=== PATIENT | male | born 1935 | race Caucasian/White ===

== ENCOUNTER → 2019-01-04 | Outpatient (CLI) | payer MEDICARE, OTHER ==
[~2019-01-04] MED LIST: AMLO10TA4 PO; BNZ40T PO; MTF500T PO; NABU750T PO; OMEP20CA6 PO; PRAV80TA PO; PROM25SU10 PR
--- NOTE | 2019-01-04 14:05 | Diagnostic Imaging Report ---
PROCEDURE: US carotid duplex, bilateral. TECHNIQUE: Multiple real-time grayscale images were obtained over the carotid arteries in various projections, bilaterally. Additional spectral analysis and color Doppler duplex images were also obtained. INDICATION: Carotid bruit FINDINGS: There is mild/moderate bilateral calcified carotid plaque. There are no focally elevated velocities within either common carotid artery, internal carotid artery. IC/CC ratio on the right is 1.79 and the left 1.0. There is antegrade flow in the right vertebral artery. Left vertebral artery is not visualized. Parameters based on the consensus panel Kent-Scale and Doppler ultrasound criteria published July 2003, Radiology, Volume 229. DOPPLER (peak systolic velocity M/S Right Left CCA 0.45 0.64 ICA Proximal 0.65 0.64 ICA Mid 0.80 0.62 ICA Distal 0.50 0.64 RATIO 1.79 1.00 ECA 0.89 1.0 VERT 0.55 NOT SEEN AT THIS TIME IMPRESSION: Mild/moderate bilateral carotid plaque. Spectral analysis shows no evidence of a hemodynamically significant stenosis within either internal carotid artery. The left vertebral artery was not visualized on this exam. Its uncertain if this is due to occlusion or hypoplasia. Dictated by: Dictated on workstation # [id number]
== END ==
LOC: RAD 12:24
PROVIDERS: ATTEND Internal Medicine
DX: I65.23 Occlusion and stenosis of bilateral carotid arteries (principal)
CPT/HCPCS: 93880

== ENCOUNTER 2021-02-15 22:32 | Inpatient (IN) | payer MEDICARE, OTHER ==
[~2021-02-15] VITALS: Ht 178 cm; Wt 84.6 kg
[2021-02-15] MEDS ORDERED: ACETAMINOPHEN 500 MG TAB (TYLENOL) ONE (22:45)
[2021-02-15 22:53] LABS: BASOPHILS % (AUTO) 0 % (0-10); EOSINOPHILS % (AUTO) 0 % (0-10); HEMATOCRIT 30 % (40-54); HEMOGLOBIN 9.6 g/dL (13.3-17.7); LYMPHOCYTES # (AUTO) 0.9 10^3/uL (1.0-4.0); LYMPHOCYTES % (AUTO) 8 % (12-44); MEAN CORPUSCULAR HEMOGLOBIN 26 pg (25-34); MEAN CORPUSCULAR HGB CONC 32 g/dL (32-36); MEAN CORPUSCULAR VOLUME 83 fL (80-99); MEAN PLATELET VOLUME 10.3 fL (9.0-12.2); MONOCYTES # (AUTO) 1.1 10^3/uL (0.0-1.0); MONOCYTES % (AUTO) 9 % (0-12); NEUTROPHILS # (AUTO) 9.4 10^3/uL (1.8-7.8); NEUTROPHILS % (AUTO) 82 % (42-75); PLATELET COUNT 251 10^3/uL (130-400); WHITE BLOOD COUNT 11.4 10^3/uL (4.3-11.0)
[2021-02-15] MEDS ORDERED: ACETAMINOPHEN 500 MG TAB (TYLENOL) PO ONE (23:00)
[2021-02-15 23:07] LABS: ALBUMIN 3.4 GM/DL (3.2-4.5)
[2021-02-15 23:08] LABS: CHLORIDE 100 MMOL/L (98-107); POTASSIUM 3.8 MMOL/L (3.6-5.0); SODIUM 135 MMOL/L (135-145)
[2021-02-15 23:09] LABS: CALCIUM 9.2 MG/DL (8.5-10.1)
[2021-02-15 23:10] LABS: GLUCOSE 130 MG/DL (70-105); TOTAL PROTEIN 7.3 GM/DL (6.4-8.2)
[2021-02-15 23:11] LABS: CARBON DIOXIDE 20 MMOL/L (21-32)
[2021-02-15 23:13] LABS: ALKALINE PHOSPHATASE 52 U/L (40-136)
[2021-02-15 23:14] LABS: CREATININE SERUM 1.03 MG/DL (0.60-1.30); GFR ESTIMATED > 60
[2021-02-15 23:15] LABS: BUN/CREATININE RATIO 20
[2021-02-15 23:16] LABS: ALANINE AMINOTRANSFERASE 10 U/L (0-55)
[2021-02-15 23:59] LABS: INR 1.3 (0.8-1.4); PROTHROMBIN TIME PATIENT 16.1 SEC (12.2-14.7)
[2021-02-16 00:41] LABS: BILIRUBIN,URINE NEGATIVE (NEGATIVE); CLARITY,URINE CLEAR; COLOR,URINE YELLOW; GLUCOSE, URINE (UA) NEGATIVE (NEGATIVE); KETONES,URINE NEGATIVE (NEGATIVE); LEUKOCYTE ESTERASE ,URINE NEGATIVE (NEGATIVE); NITRITE,URINE NEGATIVE (NEGATIVE); PH,URINE 5.5 (5-9); PROTEIN,URINE 1+ (NEGATIVE)
[2021-02-16 00:53] LABS: BACTERIA,URINE NEGATIVE /HPF; RBC,URINE RARE /HPF
[2021-02-16] MEDS ORDERED: CEFEPIME INJECTION 1,000 MG in WATER (STERILE) FOR INJECTION 10 ML IV ONE (02:30)
--- NOTE | 2021-02-16 02:40 | ED General ---
General Chief Complaint: Fever-Adult/Adol Stated Complaint: WEAKNESS,FEVER Nursing Triage Note: PRESENTS TO ROOM #9 [facility]IA [facility] GURNEY FROM HOME WITH C/O FEVER AND WEAKNESS. ENROUTE TO FACILITY EMS ACCESSED 20G SL TO R WRIST AND INITIATED NS BOLUS. EMS ADVISE POOR LIVING CONDITIONS WITH NO AIR CONDITIONER IN PT HOME. PT ALERT TO SELF AND SITUATION. Nursing Sepsis Screen: Possible Severe Sepsis Risk Source of Information: Patient, Family, Old Records Exam Limitations: Other (Dementia) History of Present Illness Date Seen by Provider: Feb 15, 2021 Time Seen by Provider: 22:34 Initial Comments This 85-year-old gentleman presents to the emergency room via EMS with comp laints of weakness and fever greater than 102. He had a fall last Friday striking his head. He was admitted at [facility] and discharged within the last 24 hours. states she has been unable to get him up and ambulatory. He then develops fever after returning home. He is any new pain. CT of the head and cervical spine was obtained at [place] and showed no injuries. He has had some pain in the neck since that time but denies any other pains. He has severe dementia and his is having a very hard time taking care of him at home. Allergies and Home Medications Allergies Coded Allergies: No Known Drug Allergies (Unverified , 02/22/10) Home Medications Amlodipine Besylate 5 Mg Tablet, 5 MG PO DAILY, (Reported) Last Action: Continued Doxazosin Mesylate 2 Mg Tablet, 2 MG PO DAILY, (Reported) Last Action: Continued Ibuprofen 200 Mg Tablet, 400 MG PO Q8H PRN for PAIN-MILD (1-4), (Reported) Last Action: Held Metformin HCl 500 Mg Tablet, 500 MG PO BID, (Reported) Last Action: Continued Metoprolol Tartrate 100 Mg Tablet, 100 MG PO BID, (Reported) Last Action: Converted Omeprazole 20 Mg Capsule.dr, 20 MG PO 1200, (Reported) Last Action: Continued Patient Home Medication List Home Medication List Reviewed: Yes Review of Systems Review of Systems Constitutional: see HPI EENTM: no symptoms reported Respiratory: no symptoms reported Cardiovascular: no symptoms reported Gastrointestinal: no symptoms reported Genitourinary: no symptoms reported Musculoskeletal: see HPI Skin: no symptoms reported Psychiatric/Neurological: See HPI Hematologic/Lymphatic: No Symptoms Reported Immunological/Allergic: no symptoms reported Past Foezfwo-Hshxid-Piwwjh Hx Past Med/Social Hx: Reviewed Nursing Past Med/Soc Hx Patient Social History Recent Infectious Disease Expo: No Past Medical History Respiratory: No Cardiac: Yes Hypertension Neurological: Yes Dementia Genitourinary: No Gastrointestinal: No Musculoskeletal: No Endocrine: Yes Diabetes, Non-Insulin dep HEENT: No Cancer: No Psychosocial: Yes (Behavior disturbances with dementia) Physical Exam-Suspected Sepsis Physical Exam Vital Signs Vital Signs - First Documented 02/15/21 22:36 Temp 38.2 Pulse 98 Resp 18 B/P (MAP) 195/85 (121) Pulse Ox 98 O2 Delivery Room Air Capillary Refill : Less Than 3 Seconds Blood Pressure Mean: 121 Height, Weight, BMI Height: '" Weight: lbs. oz. kg; 24.00 BMI Method:Estimated General Appearance: No Apparent Distress, WD/WN HEENT: PERRL/EOMI, Normal ENT Inspection, Other (Pharynx somewhat dry) Neck: Normal Inspection, Non Tender Respiratory: Lungs Clear, Normal Breath Sounds, No Accessory Muscle Use Cardiovascular: Regular Rate, Rhythm, No Edema, No Murmur Gastrointestinal: Normal Bowel Sounds, Non Tender, Soft Extremity: Normal Inspection, No Pedal Edema Neurologic/Psychiatric: Alert, Normal Mood/Affect, billet inspector II-XII Norm as Tested, Other (Generally weak, confused historian) Skin: normal color, warm/dry, other (stage I decubitus ulcer on sacrum) Focused Exam Lactate Level 02/15/21 22:40: Lactic Acid Level 1.16 Lactic Acid Level Progress/Results/Core Measures Suspected Sepsis Recent Fever Within 48 Hours: Yes Infection Criteria Present: Suspected New Infection New/Unexplained Altered Menta: Yes Sepsis Screen: Possible Severe Sepsis Risk SIRS Temperature: Pulse: 98 Respiratory Rate: 18 Laboratory Tests 02/15/21 22:40: White Blood Count 11.4H Blood Pressure 195 /85 Mean: 121 02/15/21 22:40: Lactic Acid Level 1.16 Laboratory Tests 02/15/21 22:40: Creatinine 1.03, Platelet Count 251, Total Bilirubin 1.0 02/15/21 23:30: INR Comment 1.3 Results/Orders Lab Results Laboratory Tests Test 02/15/21 00:30 02/15/21 22:40 02/15/21 23:30 02/16/21 05:17 Range/Units Urine Color YELLOW Urine Clarity CLEAR Urine pH 5.5 5-9 Urine Specific Ashley >=1.030 1.016-1.022 Urine Protein 1+ H NEGATIVE Urine Glucose (UA) NEGATIVE NEGATIVE Urine Ketones NEGATIVE NEGATIVE Urine Nitrite NEGATIVE NEGATIVE Urine Bilirubin NEGATIVE NEGATIVE Urine Urobilinogen 0.2 < = 1.0 MG/DL Urine Leukocyte Esterase NEGATIVE NEGATIVE Urine RBC (Auto) TRACE-I NEGATIVE Urine RBC RARE /HPF Urine WBC NONE /HPF Urine Squamous Epithelial Cells 2-5 /HPF Urine Crystals NONE /LPF Urine Bacteria NEGATIVE /HPF Urine Casts NONE /LPF Urine Mucus SMALL H /LPF Urine Culture Indicated CULTURE PENDING White Blood Count 11.4 H 4.3-11.0 10^3/uL Red Blood Count 3.63 L 4.30-5.52 10^6/uL Hemoglobin 9.6 L 13.3-17.7 g/dL Hematocrit 30 L 40-54 % Mean Corpuscular Volume 83 80-99 fL Mean Corpuscular Hemoglobin 26 25-34 pg Mean Corpuscular Hemoglobin Concent 32 32-36 g/dL Red Cell Distribution Width 17.5 H 10.0-14.5 % Platelet Count 251 130-400 10^3/uL Mean Platelet Volume 10.3 9.0-12.2 fL Immature Granulocyte % (Auto) 0 % Neutrophils (%) (Auto) 82 H 42-75 % Lymphocytes (%) (Auto) 8 L 12-44 % Monocytes (%) (Auto) 9 0-12 % Eosinophils (%) (Auto) 0 0-10 % Basophils (%) (Auto) 0 0-10 % Neutrophils # (Auto) 9.4 H 1.8-7.8 10^3/uL Lymphocytes # (Auto) 0.9 L 1.0-4.0 10^3/uL Monocytes # (Auto) 1.1 H 0.0-1.0 10^3/uL Eosinophils # (Auto) 0.0 0.0-0.3 10^3/uL Basophils # (Auto) 0.0 0.0-0.1 10^3/uL Immature Granulocyte # (Auto) 0.1 0.0-0.1 10^3/uL Sodium Level 135 135-145 MMOL/L Potassium Level 3.8 3.6-5.0 MMOL/L Chloride Level 100 98-107 MMOL/L Carbon Dioxide Level 20 L 21-32 MMOL/L Anion Gap 15 H 5-14 MMOL/L Blood Urea Nitrogen 21 H 7-18 MG/DL Creatinine 1.03 0.60-1.30 MG/DL Estimat Glomerular Filtration Rate > 60 BUN/Creatinine Ratio 20 Glucose Level 130 H 70-105 MG/DL Lactic Acid Level 1.16 0.50-2.00 MMOL/L Calcium Level 9.2 8.5-10.1 MG/DL Corrected Calcium 9.7 8.5-10.1 MG/DL Total Bilirubin 1.0 0.1-1.0 MG/DL Aspartate Amino Transf (AST/SGOT) 10 5-34 U/L Alanine Aminotransferase (ALT/SGPT) 10 0-55 U/L Alkaline Phosphatase 52 40-136 U/L C-Reactive Protein High Sensitivity 19.81 H 0.00-0.50 MG/DL Total Protein 7.3 6.4-8.2 GM/DL Albumin 3.4 3.2-4.5 GM/DL Influenza Type A (RT-PCR) Not Detected Not Detecte Influenza Type B (RT-PCR) Not Detected Not Detecte SARS-CoV-2 RNA (RT-PCR) Not Detected Not Detecte Prothrombin Time 16.1 H 12.2-14.7 SEC INR Comment 1.3 0.8-1.4 Activated Partial Thromboplast Time 34 24-35 SEC Glucometer 91 70-110 MG/DL My Orders Orders - TRISHA ESPINOZA MD Cbc With Automated Diff (02/15/21 22:46) Comprehensive Metabolic Panel (02/15/21 22:46) Blood Culture (02/15/21 22:46) Urinalysis (02/15/21 22:46) Urine Culture (02/15/21 22:46) Protime With Inr (02/15/21 22:46) Partial Thromboplastin Time (02/15/21 22:46) Chest 1 View, Ap/Pa Only (02/15/21 22:46) Ed Iv/Invasive Line Start (02/15/21 22:46) Ed Iv/Invasive Line Start (02/15/21 22:46) Vital Signs Adult Sepsis Patie Q15M (02/15/21 22:46) O2 (02/15/21 22:46) Remove Rings In Anticipation O (02/15/21 22:46) Lactic Acid Analyzer (02/15/21 22:46) Covid 19 Inhouse Test (02/15/21 22:46) Influenza A And B By Pcr (02/15/21 22:46) Acetaminophen Tablet (Tylenol Tablet) (02/15/21 23:00) Hs C Reactive Protein (02/16/21 00:02) Cefepime Injection (Maxipime Injection) (02/16/21 02:30) Medications Given in ED Vital Signs/I&O 02/16/21 02/16/21 02/16/21 02/16/21 03:15 03:41 03:53 04:08 Temp 36.5 36.0 Pulse 72 71 82 Resp 17 18 B/P (MAP) 122/59 (121) 161/70 (100) Pulse Ox 97 94 O2 Delivery Room Air Room Air Room Air 02/16/21 02/16/21 02/16/21 02/16/21 07:00 07:40 08:00 11:35 Temp 36.3 37.1 Pulse 68 74 76 Resp 18 24 B/P (MAP) 182/74 (110) 177/80 (112) Pulse Ox 98 98 O2 Delivery Room Air Room Air Room Air 02/16/21 12:44 Pulse 90 02/16/21 00:00 Intake Total 300 ml Balance 300 ml Capillary Refill : Less Than 3 Seconds Blood Pressure Mean: 121 Progress Note : Time: 14:46 Progress Note Rapid influenza and Covid screens were negative. Patient appeared septic but septic work-up revealed no source of infection. Cefepime was administered for empiric treatment. Patient was admitted due to suspicion of sepsis and his significant debility. had expressed a desire to have him placed at [facility] upon discharge. Departure Communication (Admissions) Time/Spoke to Admitting Phy: 02:25 Dr. Jiang Impression Primary Impression: Sepsis Qualified Codes: A41.9 - Sepsis, unspecified organism Additional Impressions: Generalized weakness Dementia Qualified Codes: F03.90 - Unspecified dementia without behavioral disturbance Disposition: ADMITTED INPATIENT Condition: Improved Admissions Decision to Admit Reason: Admit from ER (General) Decision to Admit/Date: Feb 16, 2021 Time/Decision to Admit Time: 02:00 Departure-Patient Inst. Referrals: MCKINLEY PRITCHARD DO (PCP/Family) Primary Care Physician TRISHA ESPINOZA MD Feb 16, 2021 02:40
[2021-02-16 03:53] VITALS: BP 161/70
[2021-02-16] MEDS ORDERED: ONDANSETRON 4 MG/2 ML (SDV) Z0FRAN IV PRN ×2 (04:00→11:30)
[2021-02-16] MEDS ORDERED: LACTATED RINGERS 1,000 ML IV SCH (04:00)
--- NOTE | 2021-02-16 06:17 | Diagnostic Imaging Report ---
INDICATION: Sepsis Portable chest 11:06 PM Heart size and pulmonary vascularity are normal. Lungs are clear. There are no effusions or pneumothoraces. IMPRESSION: Negative chest Dictated by: Dictated on workstation # [id number]
--- NOTE | 2021-02-16 07:36 | Diagnostic Imaging Report ---
Clinical indication: Patient with weakness and sepsis. Exam: Portable chest x-ray upright view. Comparisons: Chest x-ray dated 02/15/2021. Findings: Upper limits of normal cardiac silhouette for portable projection. There is no significant pulmonary vascular congestion. Suspected mild bibasilar atelectasis or scarring. There is no interval lung infiltrate. There is no pleural effusion or pneumothorax. There are degenerative spurs involving the thoracic spine. IMPRESSION: Stable chest x-ray exam with no radiographic evidence of acute cardiopulmonary process. Dictated by: Dictated on workstation # [id number]
[2021-02-16 07:40] VITALS: BP 182/74
[2021-02-16] MEDS ORDERED: CEFEPIME 1,000 MG/SWFI 10 ML IV PUSH IV SCH ×2 (09:00)
[2021-02-16] MEDS: ENOXAPARIN 40 MG/0.4 ML (LOVENOX) SYR SC SCH (09:10)
[2021-02-16] MEDS ORDERED: DOXA2TAB2 PO (11:13)
[2021-02-16] MEDS ORDERED: METF-397 PO (11:13)
[2021-02-16] MEDS ORDERED: OMEP20CA18 PO (11:13)
[2021-02-16] MEDS ORDERED: IBUP-2473 PO (11:13)
[2021-02-16] MEDS ORDERED: AMLO-250 PO (11:13)
[2021-02-16] MEDS ORDERED: METO100T12 PO (11:13)
[2021-02-16] MEDS ORDERED: ANTACID SUSP 30 ML UDC (MYLANTA) PO PRN (11:30)
[2021-02-16] MEDS ORDERED: ONDANSETRON 4 MG (ZOFRAN) ORAL DISSOLVE TAB PO PRN (11:30)
[2021-02-16] MEDS ORDERED: BISACODYL 10 MG SUPP (DULCOLAX) PR PRN (11:30)
[2021-02-16] MEDS ORDERED: polyethylene glycoL POWDER 17 GM (MIRALAX) PACK PO PRN (11:30)
[2021-02-16] MEDS ORDERED: ACETAMINOPHEN 325 MG TABLET PO PRN (11:30)
--- NOTE | 2021-02-16 11:33 | History & Physical-Hospitalist ---
History of Present Illness HPI/Chief Complaint Davide Goldberg is an 85-year-old male with hypertension, diabetes, dementia, who presented with weakness. He was recently admitted at [facility] and his reportedly took him home despite the physicians recommending facility placement. He is a poor historian due to dementia. He denies having any fevers although he reportedly did have a fever on arrival. He denies any shortness of breath or cough. He denies any chest pain or palpitations. He denies any abdominal pain, nausea, vomiting, or diarrhea. He denies dysuria. Source: patient Exam Limitations: no limitations Date Seen 02/16/21 Time Seen by a Provider: 09:20 Attending Physician Malinda Jiang DO PCP Juan Xavier DO Referring Physician Date of Admission Feb 16, 2021 at 03:41 Home Medications & Allergies Home Medications Reviewed patient Home Medication Reconciliation performed by pharmacy medication reconciliations turbine technician and/or nursing. Patients Allergies have been reviewed. Allergies Allergies Coded Allergies No Known Drug Allergies (Unverified02/22/10) Past Hdlrjbo-Mxtgib-Kvacyh Hx Patient Social History Tobacco Use?: No Smoking Status: Never a Smoker Substance use?: No Alcohol Use?: No Pt feels they are or have been: No Current Status Communicates: Verbally Primary Language: Slovak Preferred Spoken Language: Slovak Is interpretation needed?: No Past Medical History Hypertension Dementia Family Medical History No Pertinent Family Hx Review of Systems Constitutional: weakness EENTM: no symptoms reported Respiratory: no symptoms reported Cardiovascular: no symptoms reported Gastrointestinal: no symptoms reported Genitourinary: no symptoms reported Musculoskeletal: no symptoms reported Skin: no symptoms reported Psychiatric/Neurological: No Symptoms Reported Physical Exam Physical Exam Vital Signs Vital Signs - First Documented 02/15/21 22:36 Temp 38.2 Pulse 98 Resp 18 B/P (MAP) 195/85 (121) Pulse Ox 98 O2 Delivery Room Air Capillary Refill : Less Than 3 Seconds Height, Weight, BMI Height: '" Weight: lbs. oz. kg; 26.70 BMI Method:Estimated General Appearance: No Apparent Distress, WD/WN HEENT: PERRL/EOMI, Pharynx Normal Neck: Normal Inspection, Supple Respiratory: Lungs Clear, Normal Breath Sounds, No Respiratory Distress Cardiovascular: Regular Rate, Rhythm, No Edema, No Murmur Gastrointestinal: Normal Bowel Sounds, Non Tender, Soft Extremity: Normal Inspection, Non Tender, Pedal Edema Neurologic/Psychiatric: Alert, Disoriented, Motor Weakness Skin: Normal Color, Warm/Dry Results Results/Procedures Labs Laboratory Tests 02/15/21 22:40 Patient resulted labs reviewed. Imaging: Reviewed Imaging Report Assessment/Plan Admission Diagnosis Fever Admission Status: Inpatient Order (span 2 midnights) Reason for Inpatient Admission: Weakness requiring therapy and likely facility placement Assessment and Plan Fever SIRS Fever 38.2 and tachycardia on arrival Chest xray negative x2 UA negative Blood cultures pending Started on Cefepime, stop with no source of infection Reportedly home had no air conditioner, concern for heat exhaustion No further fevers since arrival Dementia Debility PT/OT Social work consulted for placement HTN T2DM GERD Continue home meds DVT prophylaxis: Lovenox Diagnosis/Problems Diagnosis/Problems (1) SIRS (systemic inflammatory response syndrome) Status: Acute (2) Weakness Status: Acute (3) Dementia Status: Chronic Qualifiers: Dementia type: unspecified type Dementia behavioral disturbance: without behavioral disturbance Qualified Codes: F03.90 - Unspecified dementia without behavioral disturbance (4) HTN (hypertension) Status: Chronic (5) T2DM (type 2 diabetes mellitus) Status: Chronic Qualifiers: Diabetes mellitus buttermaker continuous churn insulin use: without nursing home use (6) GERD (gastroesophageal reflux disease) Status: Chronic ANASTASIIA ORTIZ MD Feb 16, 2021 11:33
[2021-02-16 11:35] VITALS: BP 177/80
[2021-02-16] MEDS: PANTOPRAZOLE 20 MG TABLET (PROTONIX) PO SCH (12:22)
--- NOTE | 2021-02-16 14:07 | Occupational Therapy Eval ---
OT Evaluation-General/PLF Medical Diagnosis Admission Date Feb 16, 2021 at 03:41 Medical Diagnosis: sepsis, SIRS, weakness, dementia Onset Date: Feb 15, 2021 Therapy Diagnosis Therapy Diagnosis: decr self care, decr funct mob, weakness. decr act sandee Precautions Precautions/Isolations: Fall Prevention, Standard Precautions Referral Physician: Concha Referral Reason: Evaluation/Treatment Medical History Pertinent Medical History: DM, Dementia, GERD, HTN Additional Medical History Poor living conditions - no AC Current History Admitted from [facility] with weakness, fever. Blanching coccyx. reported that she can no longer care for him herself Reviewed History: Yes Social History Home: Single Level Current Living Status: Spouse Other Obstacles: Reported no AC ADL-Prior Level of Function SCALE: Activities may be completed with or without assistive devices. 9-Lytlpmectj-bxatpdw completes the activity by him/herself with no assistance from a helper. 5-Set-up or Clean-up Assistance-helper sets up or cleans up; patient completes activity. Denbo assists only prior to or following the activity. 4-Supervision or Touching Assistance-helper provides verbal cues and/or touching/steadying and/or contact guard assistance as patient completes activity. Assistance may be provided throughout the activity or intermittently. 3-Partial/Moderate Assistance-helper does LESS THAN HALF the effort. Denbo lifts, holds or supports trunk or limbs, but provides less than half the effort. 2-Substantial/Maximal Assistance-helper does MORE THAN HALF the effort. Denbo lifts or holds trunk or limbs and provides more than half the effort. 8-Nextwxdbv-tryunn does ALL the effort. Patient does none of the effort to complete the activity. Or, the assistance of 2 or more helpers is required for the patient to complete the activity. If activity was not attempted, code reason: 7-Patient Refused. 9-Not Applicable-not attempted and the patient did not perform the activity before the current illness, exacerbation or injury. 10-Not Attempted due to Environmental Limitations-(lack of equipment, weather restraints, etc.). 88-Not Attempted due to Medical Conditions or Safety Concerns. ADL PLOF Comments Pt reported that he was previously able to care for himself, dress (although puts on shoes/socks), toilet himself, bathe. He reported that he still drives. He also mentioned that he has fallen at home and said that his R knee was swollen and painful. 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 No family here to confirm self care status. Self Care: Needed Some Help Functional Cognition: Needed Some Help OT Current Status Subjective Pt seen in room, up in chair, agreeable to OT. No pain mentioned except in R knee, with movement. Not rated or described. Appearance Alert, cooperative. Oriented to name, , today's date, location (hospital) Mental Status/Objective Attachments: Saline Lock, Telemetry, Other-See Comments (Chair alarm) Current Glasses/Contacts: Yes Hearing Aids: No Dentures/Partials: Yes Hand Dominance: Right Upper Extremity ROM Grossly WFL except decreased range and strength R shoulder which he said was from a neck injury. ADL-Treatment ADL-Current Pt was able to take L slipper sock off but not put it back on. He was unable to reach R foot. He stood up from chair with CGA, FWW, took a couple steps CGA and was able to sit back down in chair safely. PT reported that he walked out in the han with CGA, FWW. He was wearing paper brief and said that he was able to use a urinal. Pt left up in chair, call light and phone present, chair alarm on. On/Off Footwear (QC): 2 Education OT Patient Education: Purpose of tx/functional activities, Rehab process, Safety issues Teaching Recipient: Patient Teaching Methods: Discussion Response to Teaching: Verbalize Understanding, Return Demonstration, Reinf orcement Needed OT Pneudraulic Systems Mechanic Goals Pneudraulic Systems Mechanic Goals Time Frame: Feb 23, 2021 Eating (QC): 6 Oral Hygiene (QC): 5 Toileting Hygiene (QC): 5 Shower/Bathe Self (QC): 5 Upper Body Dressing (QC): 5 Lower Body Dressing (QC): 5 On/Off Footwear (QC): 3 Additional Goals: 1-Demonstrate ADL Tasks, 2-Verbalize Understanding, 3- ImproveStrength/Dash 1=Demonstrate adherence to instructed precautions during ADL tasks. 2=Patient will verbalize/demonstrate understanding of assistive devices/modifications for ADL. 3=Patient will improve strength/tolerance for activity to enable patient to perform ADL's. OT Education/Plan Problem List/Assessment Assessment: Decreased Activ Tolerance, Decreased UE Strength, Dependent Transfers, Impaired Self-Care Skills, Restricted Funct UE ROM Pt would benefit from skilled OT to increase his independence in basic self care. Discharge Recommendations Plan/Recommendations: Continue POC Treatment Plan/Plan of Care Treatment,Training & Education: Yes Patient would benefit from OT for education, treatment and training to promote independence in ADL's, mobility, safety and/or upper extremity function for ADL's. Plan of Care: ADL Retraining, Functional Mobility, UE Funct Exercise/Act, UE Neuromus Re-Ed/Coord Treatment Duration: Feb 23, 2021 Frequency: 5 times per week Estimated Hrs Per Day: .25 hour per day Agreement: Yes Rehab Potential: Fair Time/GCodes Start Time: 13:35 Stop Time: 13:53 Total Time Billed (hr/min): 18 Billed Treatment Time visit, 18 minutes evaluation moderate intensity SINAI BENITEZ OT Feb 16, 2021 14:07
--- NOTE | 2021-02-16 14:17 | Physical Therapy Evaluation ---
PT Evaluation-General Medical Diagnosis Admission Date Feb 16, 2021 at 03:41 Medical Diagnosis: sepsis/generalized weakness Onset Date: Feb 16, 2021 Therapy Diagnosis Therapy Diagnosis: debility/weakness Precautions Precautions/Isolations: Fall Prevention, Standard Precautions Referral Physician: Concha Reason for Referral: Evaluation/Treatment Medical History Pertinent Medical History: DM, Dementia, HTN Current History EMS from home secondary to fever/weakness (inability to care for self) Reviewed History: Yes Social History Home: Single Level Current Living Status: Spouse Prior Prior Level of Function SCALE: Activities may be completed with or without assistive devices. 9-Jbhaocfdtd-hybpebx completes the activity by him/herself with no assistance fr om a helper. 5-Set-up or Clean-up Assistance-helper sets up or cleans up; patient completes activity. [place] assists only prior to or following the activity. 4-Supervision or Touching Assistance-helper provides verbal cues and/or touching/steadying and/or contact guard assistance as patient completes activity. Assistance may be provided throughout the activity or intermittently. 3-Partial/Moderate Assistance-helper does LESS THAN HALF the effort. [place] lifts, holds or supports trunk or limbs, but provides less than half the effort. 2-Substantial/Maximal Assistance-helper does MORE THAN HALF the effort. [place] lifts or holds trunk or limbs and provides more than half the effort. 9-Gkmgrwngf-pstwyh does ALL the effort. Patient does none of the effort to complete the activity. Or, the assistance of 2 or more helpers is required for the patient to complete the activity. If activity was not attempted, code reason: 7-Patient Refused. 9-Not Applicable-not attempted and the patient did not perform the activity before the current illness, exacerbation or injury. 10-Not Attempted due to Environmental Limitations-(lack of equipment, weather restraints, etc.). 88-Not Attempted due to Medical Conditions or Safety Concerns. Bed Mobility: 4 Transfers (B,C,W/C): 4 Gait: 4 Indoor Mobility (Ambulation): Independent Prior Devices Use: Walker PT Evaluation-Current Subjective Patient agrees to PT. Objective Patient Orientation: Person, Time, Situation ROM/Strength ROM Lower Extremities bilateral LE WFL Strength Lower Extremities 4-/5 grossly bilateral LE Integumentary/Posture Integumentary refer to nursing notes Bladder Incontinence: Yes Posture trunk flexed posture Neuromuscular (Tone, Coordination, Reflexes) grossly intact Sensory Vision: Functional Hearing: Functional Transfers Roll Left to Right (QC): 4 Sit to Lying (QC): 4 Lying to Sitting/Side of Bed(Q: 4 Sit to Stand (QC): 3 Chair/Trl-ip-Sxwht Xfer(QC): 3 Gait Does the Patient Walk?: Yes Mode of Locomotion: Walk Anticipated Mode of Locomotion: Walk Walk 10 feet (QC): 3 Walk 50 ft with 2 Turns(QC): 3 Walk 150 ft (QC): 3 Distance: 225' Gait Assistive Device: FWW Comments/Gait Description increase c/o right knee pain/functional gait sequence Balance Sitting Static: Normal Sitting Dynamic: Normal Standing Static: Fair Standing Dynamic: Fair Assessment/Needs 85 y.o. male, will benefit from skilled PT to address functional strength and mobility to improve current LOF to safely return to home or care facility at maximum LOF Rehab Potential: Fair PT Correction Goals Heat Treating Bluer Goals PT Correction Goals Time Frame: Feb 24, 2021 Roll Left & Right (QC): 5 Sit to Lying (QC): 5 Lying-Sitting on Side/Bed(QC): 5 Sit to Stand (QC): 5 Chair/Njv-iz-Osbgs Xfer(QC): 5 Toilet Transfer (QC): 5 Does the Patient Walk: Yes Walk 10 feet (QC): 4 Walk 50ft with 2 Turns (QC): 4 Walk 150 ft (QC): 4 PT Plan Problem List Problem List: Activity Tolerance, Functional Strength, Safety, Balance, Gait, Transfer, Bed Mobility Treatment/Plan Treatment Plan: Continue Plan of Care Treatment Plan: Bed Mobility, Education, Functional Activity Dash, Functional Strength, Gait, Safety, Therapeutic Exercise, Transfers Treatment Duration: Feb 24, 2021 Frequency: 6 times per week Estimated Hrs Per Day: .25 hour per day Patient and/or Family Agrees t: Yes Time/GCodes Time In: 1305 Time Out: 1326 Total Billed Treatment Time: 21 Total Billed Treatment 1 visit EVMod 21 min DELONTE DAN PT Feb 16, 2021 14:17
[2021-02-16 16:00] VITALS: BP 188/86
[2021-02-16] MEDS: DOCUSATE SODIUM 100 MG (COLACE) CAP PO SCH (19:37)
[2021-02-16] MEDS: SENNOSIDES 8.6 MG (SENOKOT) TAB PO SCH (19:38)
[2021-02-16] MEDS: metFORMIN 500 MG (GLUCOPHAGE) TAB PO SCH (19:38)
[2021-02-16] MEDS: meTOprolol TARTRATE 50 MG (LOPRESSOR) TAB PO SCH (19:38)
[2021-02-16 20:16] VITALS: BP 195/89
[2021-02-17] VITALS (7 sets, daily range): BP systolic 136–184; BP diastolic 63–82
[2021-02-17 08:28] LABS: BASOPHILS % (AUTO) 0 % (0-10); EOSINOPHILS # (AUTO) 0.3 10^3/uL (0.0-0.3); EOSINOPHILS % (AUTO) 3 % (0-10); HEMATOCRIT 29 % (40-54); LYMPHOCYTES # (AUTO) 1.1 10^3/uL (1.0-4.0); LYMPHOCYTES % (AUTO) 11 % (12-44); MEAN CORPUSCULAR HEMOGLOBIN 26 pg (25-34); MEAN CORPUSCULAR HGB CONC 31 g/dL (32-36); MEAN CORPUSCULAR VOLUME 83 fL (80-99); MEAN PLATELET VOLUME 10.3 fL (9.0-12.2); MONOCYTES # (AUTO) 0.8 10^3/uL (0.0-1.0); MONOCYTES % (AUTO) 8 % (0-12); NEUTROPHILS # (AUTO) 7.9 10^3/uL (1.8-7.8); NEUTROPHILS % (AUTO) 77 % (42-75); PLATELET COUNT 253 10^3/uL (130-400); WHITE BLOOD COUNT 10.2 10^3/uL (4.3-11.0)
[2021-02-17 08:51] LABS: BUN/CREATININE RATIO 25; CALCIUM 9.4 MG/DL (8.5-10.1); CARBON DIOXIDE 22 MMOL/L (21-32); CHLORIDE 103 MMOL/L (98-107); CREATININE SERUM 0.83 MG/DL (0.60-1.30); GFR ESTIMATED > 60; GLUCOSE 79 MG/DL (70-105); SODIUM 135 MMOL/L (135-145)
[2021-02-17] MEDS: metFORMIN 500 MG (GLUCOPHAGE) TAB PO SCH ×2 (08:51→21:08)
[2021-02-17] MEDS: ENOXAPARIN 40 MG/0.4 ML (LOVENOX) SYR SC SCH (08:51)
[2021-02-17] MEDS: DOCUSATE SODIUM 100 MG (COLACE) CAP PO SCH ×2 (08:51→21:08)
[2021-02-17] MEDS: meTOprolol TARTRATE 50 MG (LOPRESSOR) TAB PO SCH ×2 (08:51→21:08)
[2021-02-17] MEDS: SENNOSIDES 8.6 MG (SENOKOT) TAB PO SCH ×2 (08:51→21:08)
[2021-02-17] MEDS: doxAzosin 2 MG (CARDURA) TAB PO SCH (08:51)
[2021-02-17] MEDS ORDERED: amLODIPine 5 MG (NORVASC) TAB PO SCH (09:00)
--- NOTE | 2021-02-17 11:54 | Progress Note - Hospitalist ---
Subjective HPI/CC On Admission Date Seen by Provider: Feb 17, 2021 Time Seen by Provider: 10:30 Davide Goldberg is an 85-year-old male with hypertension, diabetes, dementia, who presented with weakness. He was recently admitted at [facility] and his reportedly took him home despite the physicians recommending facility placement. He is a poor historian due to dementia. He denies having any fevers although he reportedly did have a fever on arrival. He denies any shortness of breath or cough. He denies any chest pain or palpitations. He denies any abdominal pain, nausea, vomiting, or diarrhea. He denies dysuria. Subjective/Events-last exam He continues to feel weak. He has no other complaints or concerns. He denies any fevers. He denies shortness of breath and cough. He denies abdominal pain. Focused Exam Lactate Level 02/15/21 22:40: Lactic Acid Level 1.16 Objective Exam Vital Signs Vital Signs Date Time Temp Pulse Resp B/P (MAP) Pulse Ox O2 Delivery O2 Flow Rate FiO2 02/17/21 11:35 36.9 67 18 184/79 (114) 96 Room Air Capillary Refill : Less Than 3 Seconds General Appearance: No Apparent Distress, WD/WN Respiratory: Lungs Clear, Normal Breath Sounds, No Respiratory Distress Cardiovascular: Regular Rate, Rhythm, No Murmur Gastrointestinal: Normal Bowel Sounds, Non Tender, Soft Extremity: Normal Inspection, Non Tender, Pedal Edema Neurologic/Psychiatric: Alert, Normal Mood/Affect Skin: Normal Color, Warm/Dry Results/Procedures Lab Laboratory Tests 02/17/21 08:15 Patient resulted labs reviewed. Imaging: Reviewed Imaging Report Assessment/Plan Assessment and Plan Assess & Plan/Chief Complaint Dementia Debility Failure to thrive in adult PT/OT Social work consulted for placement HTN T2DM GERD Continue home meds DVT prophylaxis: Lovenox Fever, resolved SIRS, resolved Diagnosis/Problems Diagnosis/Problems (1) FTT (failure to thrive) in adult Status: Acute (2) Weakness Status: Acute (3) Dementia Status: Chronic Qualifiers: Dementia type: unspecified type Dementia behavioral disturbance: without behavioral disturbance Qualified Codes: F03.90 - Unspecified dementia without behavioral disturbance (4) HTN (hypertension) Status: Chronic (5) T2DM (type 2 diabetes mellitus) Status: Chronic Qualifiers: Diabetes mellitus shelter insulin use: without shelter use (6) GERD (gastroesophageal reflux disease) Status: Chronic (7) SIRS (systemic inflammatory response syndrome) Status: Resolved Resolution Date/Time: 02/17/21 @ 11:54 ANASTASIIA ORTIZ MD Feb 17, 2021 11:54
[2021-02-17] MEDS ORDERED: amLODIPine 5 MG (NORVASC) TAB PO ONE (12:00)
[2021-02-17] MEDS ORDERED: hydrALAZINE (APESOLINE) 20 MG/ML VIAL IV PRN (12:00)
[2021-02-17] MEDS ORDERED: lisINopril 20 MG (PRINIVIL) TABLET PO ONE (12:00)
[2021-02-17] MEDS: PANTOPRAZOLE 20 MG TABLET (PROTONIX) PO SCH (12:18)
--- NOTE | 2021-02-17 12:21 | Physical Therapy Daily Note ---
PT Daily Note-Current Subjective Pt. up in chair and readily agrees to therapy. He has no complaints. Transfers SCALE: Activities may be completed with or without assistive devices. 9-Fbefpsevga-aisjzbv completes the activity by him/herself with no assistance from a helper. 5-Set-up or Clean-up Assistance-helper sets up or cleans up; patient completes activity. [place] assists only prior to or following the activity. 4-Supervision or Touching Assistance-helper provides verbal cues and/or touching/steadying and/or contact guard assistance as patient completes ac tivity. Assistance may be provided throughout the activity or intermittently. 3-Partial/Moderate Assistance-helper does LESS THAN HALF the effort. [place] lifts, holds or supports trunk or limbs, but provides less than half the effort. 2-Substantial/Maximal Assistance-helper does MORE THAN HALF the effort. [place] lifts or holds trunk or limbs and provides more than half the effort. 1-Pnbkqfmoq-soqbvt does ALL the effort. Patient does none of the effort to complete the activity. Or, the assistance of 2 or more helpers is required for the patient to complete the activity. If activity was not attempted, code reason: 7-Patient Refused. 9-Not Applicable-not attempted and the patient did not perform the activity before the current illness, exacerbation or injury. 10-Not Attempted due to Environmental Limitations-(lack of equipment, weather restraints, etc.). 88-Not Attempted due to Medical Conditions or Safety Concerns. Sit to Stand (QC): 4 Gait Training Does the Patient Walk?: Yes Distance: 400 ft Walk 150 ft (QC): 4 Gait Persons Needed: 1 Gait Assistive Device: FWW good gait speed and overall steady, occasional cues for walker safety Treatments gait training Assessment Current Status: Good Progress Pt. did well with gait and able to increase ambulation distance. Pt. returned to bedside chair with chair alarm in place, call light in reach and all needs met. PT Offender Employment Specialist Goals Senior Care Goals PT Offender Employment Specialist Goals Time Frame: Feb 24, 2021 Roll Left & Right (QC): 5 Sit to Lying (QC): 5 Lying-Sitting on Side/Bed(QC): 5 Sit to Stand (QC): 5 Chair/Nip-hl-Upggz Xfer(QC): 5 Toilet Transfer (QC): 5 Does the Patient Walk: Yes Walk 10 feet (QC): 4 Walk 50ft with 2 Turns (QC): 4 Walk 150 ft (QC): 4 PT Plan Treatment/Plan Treatment Plan: Continue Plan of Care Treatment Plan: Bed Mobility, Education, Functional Activity Dash, Functional Strength, Gait, Safety, Therapeutic Exercise, Transfers Treatment Duration: Feb 24, 2021 Frequency: 6 times per week Estimated Hrs Per Day: .25 hour per day Patient and/or Family Agrees t: Yes Time/GCodes Time In: 0735 Time Out: 0747 Total Billed Treatment Time: 12 Total Billed Treatment 1, GT 12' BRANDIE DICKEY PT Feb 17, 2021 12:21
[2021-02-17] MEDS: MELATONIN 3 MG TABLET PO PRN (21:09)
[2021-02-18] VITALS (7 sets, daily range): BP systolic 144–191; BP diastolic 58–80
[2021-02-18] MEDS: DOCUSATE SODIUM 100 MG (COLACE) CAP PO SCH ×2 (09:32→20:28)
[2021-02-18] MEDS: ENOXAPARIN 40 MG/0.4 ML (LOVENOX) SYR SC SCH (09:32)
[2021-02-18] MEDS: amLODIPine 10 MG (NORVASC) TAB PO SCH (09:32)
[2021-02-18] MEDS: meTOprolol TARTRATE 50 MG (LOPRESSOR) TAB PO SCH ×2 (09:33→20:29)
[2021-02-18] MEDS: doxAzosin 2 MG (CARDURA) TAB PO SCH (09:33)
[2021-02-18] MEDS: metFORMIN 500 MG (GLUCOPHAGE) TAB PO SCH ×2 (09:33→20:29)
[2021-02-18] MEDS: lisINopril 20 MG (PRINIVIL) TABLET PO SCH (09:33)
[2021-02-18] MEDS: SENNOSIDES 8.6 MG (SENOKOT) TAB PO SCH ×2 (09:33→20:29)
[2021-02-18] MEDS: PANTOPRAZOLE 20 MG TABLET (PROTONIX) PO SCH (09:35)
--- NOTE | 2021-02-18 13:03 | Progress Note - Hospitalist ---
Subjective HPI/CC On Admission Date Seen by Provider: Feb 18, 2021 Time Seen by Provider: 08:55 Davide Goldberg is an 85-year-old male with hypertension, diabetes, dementia, who presented with weakness. He was recently admitted at [facility] and his reportedly took him home despite the physicians recommending facility placement. He is a poor historian due to dementia. He denies having any fevers although he reportedly did have a fever on arrival. He denies any shortness of breath or cough. He denies any chest pain or palpitations. He denies any ab dominal pain, nausea, vomiting, or diarrhea. He denies dysuria. Subjective/Events-last exam He is feeling well. He continues to feel weak. He denies fevers. He denies shortness of breath and cough. He denies abdominal pain. He has been eating and drinking well. He has no other complaints or concerns. Focused Exam Lactate Level 02/15/21 22:40: Lactic Acid Level 1.16 Objective Exam Vital Signs Vital Signs Date Time Temp Pulse Resp B/P (MAP) Pulse Ox O2 Delivery O2 Flow Rate FiO2 02/18/21 12:39 61 02/18/21 12:12 36.0 19 153/66 (95) 98 Room Air Capillary Refill : Less Than 3 Seconds General Appearance: No Apparent Distress, WD/WN Respiratory: Lungs Clear, Normal Breath Sounds, No Respiratory Distress Cardiovascular: Regular Rate, Rhythm, No Murmur Gastrointestinal: Normal Bowel Sounds, Non Tender, Soft Extremity: Normal Inspection, Non Tender, Pedal Edema Neurologic/Psychiatric: Alert, Normal Mood/Affect Skin: Normal Color, Warm/Dry Results/Procedures Lab Patient resulted labs reviewed. Imaging: Reviewed Imaging Report Assessment/Plan Assessment and Plan Assess & Plan/Chief Complaint Dementia Debility Failure to thrive in adult PT/OT Social work consulted for placement HTN T2DM GERD Continue home meds Contamination of blood culture Blood cultures with multiple organisms including coag negative Staph No evidence of acute infection/bacteremia Appears to be contaminant Monitor DVT prophylaxis: Lovenox Fever, resolved SIRS, resolved Diagnosis/Problems Diagnosis/Problems (1) FTT (failure to thrive) in adult Status: Acute (2) Weakness Status: Acute (3) Dementia Status: Chronic Qualifiers: Dementia type: unspecified type Dementia behavioral disturbance: without behavioral disturbance Qualified Codes: F03.90 - Unspecified dementia without behavioral disturbance (4) HTN (hypertension) Status: Chronic (5) T2DM (type 2 diabetes mellitus) Status: Chronic Qualifiers: Diabetes mellitus watcher automat [employer] insulin use: without watcher [employer] use (6) GERD (gastroesophageal reflux disease) Status: Chronic (7) SIRS (systemic inflammatory response syndrome) Status: Resolved Resolution Date/Time: 02/17/21 @ 11:54 (8) Contamination of blood culture Status: Acute ANASTASIIA ORTIZ MD Feb 18, 2021 13:03
[2021-02-19 04:06] VITALS: BP 152/71
[2021-02-19 07:55] VITALS: BP 149/66
[2021-02-19] MEDS: lisINopril 20 MG (PRINIVIL) TABLET PO SCH (08:29)
[2021-02-19] MEDS: ENOXAPARIN 40 MG/0.4 ML (LOVENOX) SYR SC SCH (08:29)
[2021-02-19] MEDS: amLODIPine 10 MG (NORVASC) TAB PO SCH (08:29)
[2021-02-19] MEDS: doxAzosin 2 MG (CARDURA) TAB PO SCH (08:29)
[2021-02-19] MEDS: meTOprolol TARTRATE 50 MG (LOPRESSOR) TAB PO SCH ×2 (08:29→20:45)
[2021-02-19] MEDS: DOCUSATE SODIUM 100 MG (COLACE) CAP PO SCH ×2 (08:29→20:45)
[2021-02-19] MEDS: SENNOSIDES 8.6 MG (SENOKOT) TAB PO SCH ×2 (08:29→20:45)
[2021-02-19] MEDS: metFORMIN 500 MG (GLUCOPHAGE) TAB PO SCH ×2 (08:29→20:45)
[2021-02-19] MEDS: PANTOPRAZOLE 20 MG TABLET (PROTONIX) PO SCH (08:32)
--- NOTE | 2021-02-19 11:33 | Progress Note - Hospitalist ---
Subjective HPI/CC On Admission Date Seen by Provider: Feb 19, 2021 Time Seen by Provider: 11:28 Davide Goldberg is an 85-year-old male with hypertension, diabetes, dementia, who presented with weakness. He was recently admitted at [facility] and his reportedly took him home despite the physicians recommending facility placement. He is a poor historian due to dementia. He denies having any fevers although he reportedly did have a fever on arrival. He denies any shortness of breath or cough. He denies any chest pain or palpitations. He denies any ab dominal pain, nausea, vomiting, or diarrhea. He denies dysuria. Subjective/Events-last exam Pt reports doing well. No complaints. Asking if telepack can come off. Objective Exam Vital Signs Vital Signs Date Time Temp Pulse Resp B/P (MAP) Pulse Ox O2 Delivery O2 Flow Rate FiO2 02/19/21 09:44 Room Air 02/19/21 07:55 35.8 68 18 149/66 (93) 96 Capillary Refill : Less Than 3 Seconds General Appearance: No Apparent Distress, WD/WN Respiratory: Lungs Clear, No Respiratory Distress Cardiovascular: Regular Rate, Rhythm, No Murmur Neurologic/Psychiatric: Alert, Oriented x3 Results/Procedures Lab Patient resulted labs reviewed. Imaging: Reviewed Imaging Report Assessment/Plan Assessment and Plan Assess & Plan/Chief Complaint Dementia Debility Failure to thrive in adult PT/OT Social work consulted for placement Awaiting approval from insurance HTN T2DM GERD Continue home meds Contamination of blood culture Blood cultures with multiple organisms including coag negative Staph No evidence of acute infection/bacteremia Appears to be contaminant Monitor DVT prophylaxis: Lovenox Fever, resolved SIRS, resolved KRISTIN JANG MD Feb 19, 2021 11:33
[2021-02-19 11:36] VITALS: BP 133/65
--- NOTE | 2021-02-19 14:06 | Occupational Ther Daily Note ---
OT Current Status-Daily Note Subjective Pt seen in room, up in bed, agreeable to OT. No pain mentioned except occasional discomfort R shoulder Appearance Alert, cooperative ADL-Treatment Therapy Code Descriptions/Definitions Functional [place] Measure: 0=Not Assessed/NA 4=Minimal Assistance 1=Total Assistance 5=Supervision or Setup 2=Maximal Assistance 6=Modified [place] 3=Moderate Assistance 7=Complete IndependenceSCALE: Activities may be completed with or without assistive devices. 6-Uqumhwdbbw-ijoufkc completes the activity by him/herself with no assistance from a helper. 5-Set-up or Clean-up Assistance-helper sets up or cleans up; patient completes activity. [place] assists only prior to or following the activity. 4-Supervision or Touching Assistance-helper provides verbal cues and/or touching/steadying and/or contact guard assistance as patient completes activity. Assistance may be provided throughout the activity or intermittently. 3-Partial/Moderate Assistance-helper does LESS THAN HALF the effort. [place] lifts, holds or supports trunk or limbs, but provides less than half the effort. 2-Substantial/Maximal Assistance-helper does MORE THAN HALF the effort. [place] lifts or holds trunk or limbs and provides more than half the effort. 5-Aaxajvzek-ojbnwq does ALL the effort. Patient does none of the effort to complete the activity. Or, the assistance of 2 or more helpers is required for the patient to complete the activity. If activity was not attempted, code reason: 7-Patient Refused. 9-Not Applicable-not attempted and the patient did not perform the activity before the current illness, exacerbation or injury. 10-Not Attempted due to Environmental Limitations-(lack of equipment, weather restraints, etc.). 88-Not Attempted due to Medical Conditions or Safety Concerns. Other Treatment Pt agreeable to bilat UE exercise, to help with ADLs and functional mobility. He was able to do 8-10 reps various UE exercises with red theraband (medium intensity) but needed verbal, visual and hand over hand cues at different times. He was unable to maintain quality of movement without assistance and had difficulty keeping track of repetitions. Pt left up in bed, 4 rails up, all needs met, family in room. Education OT Patient Education: Exercise program, Purpose of tx/functional activities Teaching Recipient: Patient Teaching Methods: Demonstration, Discussion Response to Teaching: Return Demonstration, Reinforcement Needed OT Core Sticker Goals Fdc Goals Time Frame: Feb 23, 2021 Eating (QC): 6 Oral Hygiene (QC): 5 Toileting Hygiene (QC): 5 Shower/Bathe Self (QC): 5 Upper Body Dressing (QC): 5 Lower Body Dressing (QC): 5 On/Off Footwear (QC): 3 Additional Goals: 1-Demonstrate ADL Tasks, 2-Verbalize Understanding, 3- ImproveStrength/Dash 1=Demonstrate adherence to instructed precautions during ADL tasks. 2=Patient will verbalize/demonstrate understanding of assistive devices/efrain fications for ADL. 3=Patient will improve strength/tolerance for activity to enable patient to perform ADL's. OT Education/Plan Problem List/Assessment Pt would benefit from skilled OT to increase his independence in basic self care. Discharge Recommendations Plan/Recommendations: Continue POC Treatment Plan/Plan of Care Patient would benefit from OT for education, treatment and training to promote independence in ADL's, mobility, safety and/or upper extremity function for ADL's. Plan of Care: ADL Retraining, Functional Mobility, UE Funct Exercise/Act, UE Neuromus Re-Ed/Coord Treatment Duration: Feb 23, 2021 Frequency: 5 times per week Estimated Hrs Per Day: .25 hour per day Agreement: Yes Rehab Potential: Fair Time/GCodes Start Time: 13:33 Stop Time: 13:46 Total Time Billed (hr/min): 13 Billed Treatment Time visit, 13 minutes exercise SINAI BENITEZ OT Feb 19, 2021 14:06
--- NOTE | 2021-02-19 14:42 | Physician Query Clarification ---
Physician Query-General Query to Physician: Clinical Validation Clarification : Kristin Bazzi Sepsis has been documented in the medical record. After study, do you consider Sepsis a clinically valid diagnosis? If not clinically valid, please document "Sepsis, ruled out" on the progress notes and/or discharge summary. 1. Not agreed, Sepsis not clinically valid/ruled out 2. Agreed, Sepsis is a clinically valid diagnosis 3. Other, with explanation of the clinical findings 4. Clinically undetermined, no explanation for the clinical findings Additional information: Admission VS/Labs HR 98, RR 18, BP 195/85, SpO2 98% sat on room air T 38.2, WBC 11.4, Lactic acid 1.16, BC Pos with documentation of "appears to be contaminant", Treatment: LR 1L, Cefepime IV DC'd on 02/16/2021 Please remember a lack of response to the above will prompt a phone page by CDI/coding staff. In responding to this query, please exercise your independent professional judgment. The purpose of this communication is to more accurately reflect the complexity of your patients condition. The fact that a question is asked does not imply that any particular answer is desired or expected. Thank you for timely response to this clarification. Lizbeth Mendes MSN, RN Clinical Title Manager PH [phone] [email or web address] PHYSICIAN RESPONSE: Based on the clinical findings in the record, please respond to the query above on this document as an addendum. Physician Response: Physician Response Please defer to Dr Kern who saw him on admission and can better assess. If you have questions please contact: Tree Thinner: Ext: Thank you for your time and cooperation. Clinical Title Manager/Tree Thinner This is a permanent part of the medical record LIZBETH MENDES Feb 19, 2021 14:42 KRISTIN BAZZI MD Feb 20, 2021 15:39
--- NOTE | 2021-02-19 14:44 | Physical Therapy Daily Note ---
PT Daily Note-Current Subjective Patient agrees to PT. Mental Status Patient Orientation: Person, Time Transfers SCALE: Activities may be completed with or without assistive devices. 3-Xvnfsrxqbt-oqbbeuv completes the activity by him/herself with no assistance from a helper. 5-Set-up or Clean-up Assistance-helper sets up or cleans up; patient completes activity. [place] assists only prior to or following the activity. 4-Supervision or Touching Assistance-helper provides verbal cues and/or touching/steadying and/or contact guard assistance as patient completes activity. Assistance may be provided throughout the activity or intermittently. 3-Partial/Moderate Assistance-helper does LESS THAN HALF the effort. [place] lifts, holds or supports trunk or limbs, but provides less than half the effort. 2-Substantial/Maximal Assistance-helper does MORE THAN HALF the effort. [place] lifts or holds trunk or limbs and provides more than half the effort. 9-Uhkkbyfmq-xizjbs does ALL the effort. Patient does none of the effort to complete the activity. Or, the assistance of 2 or more helpers is required for the patient to complete the activity. If activity was not attempted, code reason: 7-Patient Refused. 9-Not Applicable-not attempted and the patient did not perform the activity before the current illness, exacerbation or injury. 10-Not Attempted due to Environmental Limitations-(lack of equipment, weather restraints, etc.). 88-Not Attempted due to Medical Conditions or Safety Concerns. Sit to Lying (QC): 6 Lying to Sitting/Side of Bed(Q: 6 Sit to Stand (QC): 4 Gait Training Does the Patient Walk?: Yes Distance: 375' Walk 10 feet (QC): 4 Walk 50 ft with 2 Turns(QC): 4 Walk 150 ft (QC): 4 Gait Assistive Device: FWW SBA for safety/slightly unsteady with self correct Assessment Patient returned to bed with 4 rails up and bed alarm activated. Patient tolerated treatment well. PT Sleeve Separator Goals Sleeve Separator Goals PT Alf Goals Time Frame: Feb 24, 2021 Roll Left & Right (QC): 5 Sit to Lying (QC): 5 Lying-Sitting on Side/Bed(QC): 5 Sit to Stand (QC): 5 Chair/Iyg-bv-Rjfll Xfer(QC): 5 Toilet Transfer (QC): 5 Does the Patient Walk: Yes Walk 10 feet (QC): 4 Walk 50ft with 2 Turns (QC): 4 Walk 150 ft (QC): 4 PT Plan Treatment/Plan Treatment Plan: Continue Plan of Care Treatment Plan: Bed Mobility, Education, Functional Activity Dash, Functional Strength, Gait, Safety, Therapeutic Exercise, Transfers Treatment Duration: Feb 24, 2021 Frequency: 6 times per week Estimated Hrs Per Day: .25 hour per day Patient and/or Family Agrees t: Yes Time/GCodes Time In: 1416 Time Out: 1431 Total Billed Treatment Time: 15 Total Billed Treatment 1 visit FA 15 min DELONTE DAN PT Feb 19, 2021 14:44
[2021-02-19 15:45] VITALS: BP 146/65
[2021-02-19 20:40] VITALS: BP 163/70
[2021-02-19] MEDS: MELATONIN 3 MG TABLET PO PRN (20:45)
[2021-02-20] VITALS (7 sets, daily range): BP systolic 142–169; BP diastolic 66–80
[2021-02-20] MEDS ORDERED: LISI20TA26 PO (07:37)
[2021-02-20] MEDS ORDERED: AMLO-251 PO (07:37)
[2021-02-20] MEDS: ENOXAPARIN 40 MG/0.4 ML (LOVENOX) SYR SC SCH (09:03)
[2021-02-20] MEDS: metFORMIN 500 MG (GLUCOPHAGE) TAB PO SCH ×2 (09:03→21:28)
[2021-02-20] MEDS: meTOprolol TARTRATE 50 MG (LOPRESSOR) TAB PO SCH ×2 (09:03→21:28)
[2021-02-20] MEDS: DOCUSATE SODIUM 100 MG (COLACE) CAP PO SCH ×2 (09:03→21:28)
[2021-02-20] MEDS: doxAzosin 2 MG (CARDURA) TAB PO SCH (09:04)
[2021-02-20] MEDS: amLODIPine 10 MG (NORVASC) TAB PO SCH (09:04)
[2021-02-20] MEDS: SENNOSIDES 8.6 MG (SENOKOT) TAB PO SCH ×2 (09:04→21:28)
[2021-02-20] MEDS: lisINopril 20 MG (PRINIVIL) TABLET PO SCH (09:04)
--- NOTE | 2021-02-20 10:30 | Physical Therapy Daily Note ---
PT Daily Note-Current Subjective Patient is very agreeable to participate with PT. Mental Status Patient Orientation: Person Transfers SCALE: Activities may be completed with or without assistive devices. 0-Izmktbmleq-bdovmhw completes the activity by him/herself with no assistance from a helper. 5-Set-up or Clean-up Assistance-helper sets up or cleans up; patient completes activity. [place] assists only prior to or following the activity. 4-Supervision or Touching Assistance-helper provides verbal cues and/or touching/steadying and/or contact guard assistance as patient completes activity. Assistance may be provided throughout the activity or intermittently. 3-Partial/Moderate Assistance-helper does LESS THAN HALF the effort. [place] lifts, holds or supports trunk or limbs, but provides less than half the effort. 2-Substantial/Maximal Assistance-helper does MORE THAN HALF the effort. [place] lifts or holds trunk or limbs and provides more than half the effort. 0-Frvscspcv-zwihgv does ALL the effort. Patient does none of the effort to complete the activity. Or, the assistance of 2 or more helpers is required for the patient to complete the activity. If activity was not attempted, code reason: 7-Patient Refused. 9-Not Applicable-not attempted and the patient did not perform the activity before the current illness, exacerbation or injury. 10-Not Attempted due to Environmental Limitations-(lack of equipment, weather restraints, etc.). 88-Not Attempted due to Medical Conditions or Safety Concerns. Lying to Sitting/Side of Bed(Q: 4 Sit to Stand (QC): 4 Chair/Ybe-hl-Vcvjj Xfer(QC): 4 Gait Training Does the Patient Walk?: Yes Distance: 500' Walk 10 feet (QC): 4 Walk 50 ft with 2 Turns(QC): 4 Walk 150 ft (QC): 4 Gait Assistive Device: FWW safe and functional with on deviation Assessment Patient is up in recliner with chair alarm activated. Plan dismissal to alf this week per report. PT Radio Station Operator Goals Fdc Goals PT Fdc Goals Time Frame: Feb 24, 2021 Roll Left & Right (QC): 5 Sit to Lying (QC): 5 Lying-Sitting on Side/Bed(QC): 5 Sit to Stand (QC): 5 Chair/Kwh-ua-Fcjid Xfer(QC): 5 Toilet Transfer (QC): 5 Does the Patient Walk: Yes Walk 10 feet (QC): 4 Walk 50ft with 2 Turns (QC): 4 Walk 150 ft (QC): 4 PT Plan Treatment/Plan Treatment Plan: Continue Plan of Care Treatment Plan: Bed Mobility, Education, Functional Activity Dash, Functional Strength, Gait, Safety, Therapeutic Exercise, Transfers Treatment Duration: Feb 24, 2021 Frequency: 6 times per week Estimated Hrs Per Day: .25 hour per day Patient and/or Family Agrees t: Yes Time/GCodes Time In: 1011 Time Out: 1021 Total Billed Treatment Time: 10 Total Billed Treatment 1 visit FA 10 min DELONTE DAN PT Feb 20, 2021 10:30
[2021-02-20] MEDS: PANTOPRAZOLE 20 MG TABLET (PROTONIX) PO SCH (11:22)
--- NOTE | 2021-02-20 12:24 | Occupational Ther Daily Note ---
OT Current Status-Daily Note Subjective Pt seated up in recliner, agreeable to OT tx. ADL-Treatment Therapy Code Descriptions/Definitions Functional [place] Measure: 0=Not Assessed/NA 4=Minimal Assistance 1=Total Assistance 5=Supervision or Setup 2=Maximal Assistance 6=Modified [place] 3=Moderate Assistance 7=Complete IndependenceSCALE: Activities may be completed with or without assistive devices. 2-Iuouoteblu-tajbubd completes the activity by him/herself with no assistance from a helper. 5-Set-up or Clean-up Assistance-helper sets up or cleans up; patient completes activity. [place] assists only prior to or following the activity. 4-Supervision or Touching Assistance-helper provides verbal cues and/or touching/steadying and/or contact guard assistance as patient completes activity. Assistance may be provided throughout the activity or intermittently. 3-Partial/Moderate Assistance-helper does LESS THAN HALF the effort. [place] lifts, holds or supports trunk or limbs, but provides less than half the effort. 2-Substantial/Maximal Assistance-helper does MORE THAN HALF the effort. [place] lifts or holds trunk or limbs and provides more than half the effort. 1-Yldvwqnjz-joudhr does ALL the effort. Patient does none of the effort to complete the activity. Or, the assistance of 2 or more helpers is required for the patient to complete the activity. If activity was not attempted, code reason: 7-Patient Refused. 9-Not Applicable-not attempted and the patient did not perform the activity before the current illness, exacerbation or injury. 10-Not Attempted due to Environmental Limitations-(lack of equipment, weather restraints, etc.). 88-Not Attempted due to Medical Conditions or Safety Concerns. Other Treatment Pt seated in chair, took meds provided by nurse IND. Pt agreeable to UE exercise in order to increase BUE strength and activity tolerance. Pt unable to recall UE exercises from previous tx, requiring moderate verbal cues with demonstrations, and hand over hand assist with some movements. Pt completed x10 reps each of the following BUEs: shoulder flexion, elbow flexion, elbow extension and horizontal abduction. Pt encouraged to continue exercises, completing 2-3 times a day, he verbalized understanding. Post tx, pt seated in recliner, call light in reach and all needs met. Education OT Patient Education: Correct positioning, Energy conservation, Exercise program, Home exercise program, Modified ADL techniques, Progress toward Goal/Update tx plan, Rehab process Teaching Recipient: Patient Teaching Methods: Demonstration, Discussion Response to Teaching: Reinforcement Needed OT E Commerce Strategist Goals E Commerce Strategist Goals Time Frame: Feb 23, 2021 Eating (QC): 6 Oral Hygiene (QC): 5 Toileting Hygiene (QC): 5 Shower/Bathe Self (QC): 5 Upper Body Dressing (QC): 5 Lower Body Dressing (QC): 5 On/Off Footwear (QC): 3 Additional Goals: 1-Demonstrate ADL Tasks, 2-Verbalize Understanding, 3- ImproveStrength/Dash 1=Demonstrate adherence to instructed precautions during ADL tasks. 2=Patient will verbalize/demonstrate understanding of assistive devices/modifications for ADL. 3=Patient will improve strength/tolerance for activity to enable patient to perform ADL's. OT Education/Plan Problem List/Assessment Assessment: Decreased Activ Tolerance, Decreased Safety Aware, Decreased UE Strength, Impaired I ADL's, Impaired Self-Care Skills Pt would benefit from skilled OT to increase his independence in basic self care. Discharge Recommendations Plan/Recommendations: Continue POC Treatment Plan/Plan of Care Patient would benefit from OT for education, treatment and training to promote independence in ADL's, mobility, safety and/or upper extremity function for ADL's. Plan of Care: ADL Retraining, Functional Mobility, UE Funct Exercise/Act, UE Neuromus Re-Ed/Coord Treatment Duration: Feb 23, 2021 Frequency: 5 times per week Estimated Hrs Per Day: .25 hour per day Agreement: Yes Rehab Potential: Fair Time/GCodes Start Time: 11:21 Stop Time: 11:30 Total Time Billed (hr/min): 9 Billed Treatment Time 1, EX FABIOLA BSUCH OT Feb 20, 2021 12:24
--- NOTE | 2021-02-20 14:01 | Progress Note - Hospitalist ---
Subjective HPI/CC On Admission Date Seen by Provider: Feb 20, 2021 Time Seen by Provider: 14:00 Davide Goldberg is an 85-year-old male with hypertension, diabetes, dementia, who presented with weakness. He was recently admitted at [facility] and his reportedly took him home despite the physicians recommending facility placement. He is a poor historian due to dementia. He denies having any fevers although he reportedly did have a fever on arrival. He denies any shortness of breath or cough. He denies any chest pain or palpitations. He denies any ab dominal pain, nausea, vomiting, or diarrhea. He denies dysuria. Subjective/Events-last exam Pt reports doing well. Discussed that we were just waiting on insurance to approve skilled therapy for him and he nods. Denies any needs. Objective Exam Vital Signs Vital Signs Date Time Temp Pulse Resp B/P (MAP) Pulse Ox O2 Delivery O2 Flow Rate FiO2 02/20/21 11:05 36.2 67 18 163/72 (102) 97 Room Air Capillary Refill : Less Than 3 Seconds General Appearance: No Apparent Distress, Chronically ill Respiratory: Lungs Clear, No Respiratory Distress Cardiovascular: Regular Rate, Rhythm, No Murmur Neurologic/Psychiatric: Alert, Oriented x3 Results/Procedures Lab Patient resulted labs reviewed. Imaging: Reviewed Imaging Report Assessment/Plan Assessment and Plan Assess & Plan/Chief Complaint Dementia Debility Failure to thrive in adult PT/OT Social work consulted for placement Awaiting approval from insurance still, hopeful to hear soon HTN T2DM GERD Continue home meds Contamination of blood culture Blood cultures with multiple organisms including coag negative Staph No evidence of acute infection/bacteremia Appears to be contaminant Monitor DVT prophylaxis: Lovenox Fever, resolved SIRS, resolved KRISTIN JANG MD Feb 20, 2021 14:01
[2021-02-20] MEDS: MELATONIN 3 MG TABLET PO PRN (21:28)
[2021-02-21 03:41] VITALS: BP 178/84
[2021-02-21 07:59] VITALS: BP 169/70
--- NOTE | 2021-02-21 09:06 | Physical Therapy Daily Note ---
PT Daily Note-Current Subjective Patient in recliner pre tx, agrees to PT, has no complaints of pain. Appearance Patient in recliner post tx with nurse call, phone, tray, chair alarm on. Mental Status Patient Orientation: Person, Confused Transfers SCALE: Activities may be completed with or without assistive devices. 1-Jnveonirwx-cgoxflk completes the activity by him/herself with no assistance from a helper. 5-Set-up or Clean-up Assistance-helper sets up or cleans up; patient completes activity. [place] assists only prior to or following the activity. 4-Supervision or Touching Assistance-helper provides verbal cues and/or touching/steadying and/or contact guard assistance as patient completes activity. Assistance may be provided throughout the activity or intermittently. 3-Partial/Moderate Assistance-helper does LESS THAN HALF the effort. [place] lifts, holds or supports trunk or limbs, but provides less than half the effort. 2-Substantial/Maximal Assistance-helper does MORE THAN HALF the effort. [place] lifts or holds trunk or limbs and provides more than half the effort. 2-Gjufbzdjd-saiybe does ALL the effort. Patient does none of the effort to complete the activity. Or, the assistance of 2 or more helpers is required for the patient to complete the activity. If activity was not attempted, code reason: 7-Patient Refused. 9-Not Applicable-not attempted and the patient did not perform the activity before the current illness, exacerbation or injury. 10-Not Attempted due to Environmental Limitations-(lack of equipment, weather restraints, etc.). 88-Not Attempted due to Medical Conditions or Safety Concerns. Sit to Stand (QC): 4 Chair/Dby-yo-Adlzz Xfer(QC): 4 Gait Training Distance: 400' Walk 10 feet (QC): 4 Walk 50 ft with 2 Turns(QC): 4 Walk 150 ft (QC): 4 Gait Persons Needed: 1 Gait Assistive Device: FWW CGA, slow but steady ambulation, needs occasional cues for direction Exercises Seated Therapy Exercises: Ankle pumps, Long arc quads Seated Reps: 20 Treatments transfers, ambulation, LE exercise Assessment Current Status: Fair Progress no LOB, confused, patient has a sitter PT [facility]ci Goals Chemical Production Technician Goals PT Chemical Production Technician Goals Time Frame: Feb 24, 2021 Roll Left & Right (QC): 5 Sit to Lying (QC): 5 Lying-Sitting on Side/Bed(QC): 5 Sit to Stand (QC): 5 Chair/Cso-pj-Qrcys Xfer(QC): 5 Toilet Transfer (QC): 5 Does the Patient Walk: Yes Walk 10 feet (QC): 4 Walk 50ft with 2 Turns (QC): 4 Walk 150 ft (QC): 4 PT Plan Problem List Problem List: Activity Tolerance, Functional Strength, Safety, Balance, Gait, Transfer, Bed Mobility Treatment/Plan Treatment Plan: Continue Plan of Care Treatment Plan: Bed Mobility, Education, Functional Activity Dash, Functional Strength, Gait, Safety, Therapeutic Exercise, Transfers Treatment Duration: Feb 24, 2021 Frequency: 6 times per week Estimated Hrs Per Day: .25 hour per day Patient and/or Family Agrees t: Yes Safety Risks/Education Patient Education: Gait Training, Transfer Techniques, Correct Positioning, Safety Issues Teaching Recipient: Patient Teaching Methods: Demonstration, Discussion Response to Teaching: Reinforcement Needed Time/GCodes Time In: 0837 Time Out: 0848 Total Billed Treatment Time: 11 Total Billed Treatment 1 visit FA IZZY BAIN PT Feb 21, 2021 09:06
[2021-02-21] MEDS: lisINopril 20 MG (PRINIVIL) TABLET PO SCH (09:54)
[2021-02-21] MEDS: SENNOSIDES 8.6 MG (SENOKOT) TAB PO SCH (09:54)
[2021-02-21] MEDS: DOCUSATE SODIUM 100 MG (COLACE) CAP PO SCH (09:54)
[2021-02-21] MEDS: metFORMIN 500 MG (GLUCOPHAGE) TAB PO SCH (09:55)
[2021-02-21] MEDS: meTOprolol TARTRATE 50 MG (LOPRESSOR) TAB PO SCH (09:55)
[2021-02-21] MEDS: amLODIPine 10 MG (NORVASC) TAB PO SCH (09:55)
[2021-02-21] MEDS: doxAzosin 2 MG (CARDURA) TAB PO SCH (09:55)
[2021-02-21] MEDS: ENOXAPARIN 40 MG/0.4 ML (LOVENOX) SYR SC SCH (09:55)
--- NOTE | 2021-02-21 11:00 | Occupational Ther Daily Note ---
OT Current Status-Daily Note Subjective Pt alert, sitting in recliner. Pt oriented to name. Agrees to work with MORRISSEY. Mental Status/Objective Patient Orientation: Person, Confused ADL-Treatment Pt able to wash up with bath pack after set up. SBA in standing while pt cleanses katy area/buttocks. After set up, pt able to don/doff upper body clothing and footwear by self. Pt threads pants over feet then SBA in standing while pt hikes pants over hips. After session, pt sitting in recliner with call light/phone in reach. Chair alarm activated. All needs met in room. Nrsg aware of pt's position. Therapy Code Descriptions/Definitions Functional [place] Measure: 0=Not Assessed/NA 4=Minimal Assistance 1=Total Assistance 5=Supervision or Setup 2=Maximal Assistance 6=Modified [place] 3=Moderate Assistance 7=Complete IndependenceSCALE: Activities may be completed with or without assistive devices. 8-Cbmluwgspl-wleyhfk completes the activity by him/herself with no assistance from a helper. 5-Set-up or Clean-up Assistance-helper sets up or cleans up; patient completes a ctivity. [place] assists only prior to or following the activity. 4-Supervision or Touching Assistance-helper provides verbal cues and/or touching/steadying and/or contact guard assistance as patient completes activity. Assistance may be provided throughout the activity or intermittently. 3-Partial/Moderate Assistance-helper does LESS THAN HALF the effort. [place] lifts, holds or supports trunk or limbs, but provides less than half the effort. 2-Substantial/Maximal Assistance-helper does MORE THAN HALF the effort. [place] lifts or holds trunk or limbs and provides more than half the effort. 1-Ebepsglwe-mkcrca does ALL the effort. Patient does none of the effort to complete the activity. Or, the assistance of 2 or more helpers is required for the patient to complete the activity. If activity was not attempted, code reason: 7-Patient Refused. 9-Not Applicable-not attempted and the patient did not perform the activity before the current illness, exacerbation or injury. 10-Not Attempted due to Environmental Limitations-(lack of equipment, weather restraints, etc.). 88-Not Attempted due to Medical Conditions or Safety Concerns. Shower/Bathe Self (QC): 4 Upper Body Dressing (QC): 5 Lower Body Dressing (QC): 4 On/Off Footwear: 5 OT Wholesale Diamond Broker Goals Intermediate Goals Time Frame: Feb 23, 2021 Eating (QC): 6 Oral Hygiene (QC): 5 Toileting Hygiene (QC): 5 Shower/Bathe Self (QC): 5 Upper Body Dressing (QC): 5 Lower Body Dressing (QC): 5 On/Off Footwear (QC): 3 Additional Goals: 1-Demonstrate ADL Tasks, 2-Verbalize Understanding, 3- ImproveStrength/Dash 1=Demonstrate adherence to instructed precautions during ADL tasks. 2=Patient will verbalize/demonstrate understanding of assistive devices/modifications for ADL. 3=Patient will improve strength/tolerance for activity to enable patient to perform ADL's. OT Education/Plan Problem List/Assessment Assessment: Decreased Safety Aware Pt would benefit from skilled OT to increase his independence in basic self care. Discharge Recommendations Plan/Recommendations: Continue POC Treatment Plan/Plan of Care Patient would benefit from OT for education, treatment and training to promote independence in ADL's, mobility, safety and/or upper extremity function for ADL's. Plan of Care: ADL Retraining, Functional Mobility, UE Funct Exercise/Act, UE Neuromus Re-Ed/Coord Treatment Duration: Feb 23, 2021 Frequency: 5 times per week Estimated Hrs Per Day: .25 hour per day Agreement: Yes Rehab Potential: Fair Time/GCodes Start Time: 10:40 Stop Time: 11:00 Total Time Billed (hr/min): 20 Billed Treatment Time 1 visit-ADL 1 (20 min) RASHMI NOEL Feb 21, 2021 11:00
[2021-02-21 11:01] VITALS: BP 178/77
--- NOTE | 2021-02-21 11:48 | Discharge Inst-Simple/Standard ---
Discharge Inst-Standard Discharge Medications New, Converted or Re-Newed RX: Transmitted to Pharmacy Patient Instructions/Follow Up Plan of Care/Instructions/FU: Please continue to take your medications as written. Please follow up with your primary care doctor to follow up this hospital stay. Activity as Tolerated: Yes Discharge Diet: No Restrictions Return to The Hospital For: Chest pain, shortness of breath, weakness, confusion, if you feel you are getting worse. KRISTIN JANG MD Feb 21, 2021 11:48
--- NOTE | 2021-02-21 11:50 | Discharge Summary ---
Diagnosis/Chief Complaint Date of Admission Feb 16, 2021 at 03:41 Date of Discharge Discharge Date: Feb 21, 2021 Admission Diagnosis Fever Primary Care Juan Xavier DO Discharge Diagnosis (1) FTT (failure to thrive) in adult Status: Acute (2) Weakness Status: Acute (3) Dementia Status: Chronic (4) HTN (hypertension) Status: Chronic (5) T2DM (type 2 diabetes mellitus) Status: Chronic (6) GERD (gastroesophageal reflux disease) Status: Chronic (7) SIRS (systemic inflammatory response syndrome) Status: Resolved (8) Contamination of blood culture Status: Acute Discharge Summary Discharge Physical Exam Allergies: Coded Allergies: No Known Drug Allergies (Unverified , 02/22/10) Vitals & I&Os General Appearance: No Apparent Distress, WD/WN, Chronically ill Cardiovascular: Regular Rate, Rhythm, No Murmur Gastrointestinal: Normal Bowel Sounds, Non Tender, Soft Neurologic/Psychiatric: Alert, Disoriented Hospital Course Pt was admitted due to weakness and inability to care for self at home. He arrived with a fever and no infectious etiology was found. He had just been at [facility] and SNF placement was recommended then but family declined. They did agree during this admission but insurance declined skilled benefits. Family elected instead to take him home instead of pursuing residential care. Home health services were recommended and offered but declined. He was discharged home in stable condition to follow up with his PCP. Labs (last 24 hrs) Microbiology 02/15/21 Blood Culture - Final, Complete No growth 02/15/21 Urine Culture - Final, Complete NO GROWTH Patient resulted labs reviewed. Pending Labs Imaging: Reviewed Imaging Report Discussion & Recommendations Discharge Planning: >30 minutes discharge planning Discharge Home Medications: Active Scripts Active Lisinopril 20 Mg Tablet 20 Mg PO DAILY@0900 Amlodipine Besylate 10 Mg Tablet 10 Mg PO DAILY Reported Ibuprofen 200 Mg Tablet 400 Mg PO Q8H PRN Omeprazole 20 Mg Capsule.dr 20 Mg PO 1200 Metoprolol Tartrate 100 Mg Tablet 100 Mg PO BID Doxazosin Mesylate 2 Mg Tablet 2 Mg PO DAILY Metformin HCl 500 Mg Tablet 500 Mg PO BID Instructions to patient/family Please see electronic discharge instructions given to patient. Problem Qualifiers (1) Dementia: Dementia type: unspecified type Dementia behavioral disturbance: without behavioral disturbance Qualified Codes: F03.90 - Unspecified dementia without behavioral disturbance (2) T2DM (type 2 diabetes mellitus): Diabetes mellitus long-term insulin use: without long-term use KRISTIN JANG MD Feb 21, 2021 11:50
--- NOTE | 2021-02-21 16:55 | Physician Query Clarification ---
Physician Query-General Query to Physician: Clinical Validation Clarification : Concha [place] Sepsis has been documented in the medical record. After study, do you consider Sepsis a clinically valid diagnosis? If not cli nically valid, please document "Sepsis, ruled out" on the progress notes and/or discharge summary. 1. Not agreed, Sepsis not clinically valid/ruled out 2. Agreed, Sepsis is a clinically valid diagnosis 3. Other, with explanation of the clinical findings 4. Clinically undetermined, no explanation for the clinical findings Additional information: Admission VS/Labs HR 98, RR 18, BP 195/85, SpO2 98% sat on room air T 38.2, WBC 11.4, Lactic acid 1.16, BC Pos with documentation of "appears to be contaminant", Treatment: LR 1L, Cefepime IV DC'd on 02/16/2021 Please remember a lack of response to the above will prompt a phone page by CDI/coding staff. In responding to this query, please exercise your independent professional judgment. The purpose of this communication is to more accurately reflect the complexity of your patients condition. The fact that a question is asked does not imply that any particular answer is desired or expected. Thank you for timely response to this clarification. Lizbeth Arizmendi MSN, RN Clinical Basket Hand Braider PH [phone] PHYSICIAN RESPONSE: Based on the clinical findings in the record, please respond to the query above on this document as an addendum. Physician Response: Physician Response Sepsis ruled out If you have questions please contact: Corporate Safety Coordinator: Ext: Thank you for your time and cooperation. Clinical Basket Hand Braider/Corporate Safety Coordinator This is a permanent part of the medical record LIZBETH ARIZMENDI Feb 21, 2021 16:55 ANASTASIIA ORTIZ MD Mar 06, 2021 21:42
== END 2021-02-21 12:30 | disposition home or self-care (01) | DRG 948 ==
LOC: EDUNIT# 22:32 → ER 22:34 → 4TH 02-16 03:41
PROVIDERS: ADMIT Internal Medicine; ATTEND Family Medicine
DX: R53.1 Weakness (principal); R62.7 Adult failure to thrive; F03.90 Unspecified dementia, unspecified severity, without behavioral disturbance, psychotic disturbance, mood disturbance, and anxiety; R50.9 Fever, unspecified; I10 Essential (primary) hypertension; E11.9 Type 2 diabetes mellitus without complications; L89.151 Pressure ulcer of sacral region, stage 1; Z66 Do not resuscitate; Z20.822 Contact with and (suspected) exposure to COVID-19; K21.9 Gastro-esophageal reflux disease without esophagitis; Z68.26 Body mass index [BMI] 26.0-26.9, adult; Z79.84 Long term (current) use of oral hypoglycemic drugs
CPT/HCPCS: 36415; 71045; 80048; 80053; 81000; 82947; 83605; 85025; 85610; 85730; 86141; 87040; 87088; 87636; 96374

== ENCOUNTER 2021-09-13 14:10 | Inpatient (IN) | payer MEDICARE, OTHER ==
[~2021-09-13] VITALS: Ht 165 cm; Wt 70.8 kg
[~2021-09-13 14:10] MED LIST changes: +AMLO-250 PO; +AMLO-251 PO; +DOXA2TAB2 PO; +IBUP-2473 PO; +LISI20TA26 PO; +METF-397 PO; +METO100T12 PO; +OMEP20CA18 PO
[2021-09-13 15:19] LABS: BASOPHILS % (AUTO) 0 % (0-10); EOSINOPHILS % (AUTO) 0 % (0-10); HEMATOCRIT 35 % (40-54); HEMOGLOBIN 10.5 g/dL (13.3-17.7); LYMPHOCYTES # (AUTO) 0.6 X 10^3 (1.0-4.0); LYMPHOCYTES % (AUTO) 3 % (12-44); MEAN CORPUSCULAR HEMOGLOBIN 25 pg (25-34); MEAN CORPUSCULAR HGB CONC 30 g/dL (32-36); MEAN CORPUSCULAR VOLUME 85 fL (80-99); MEAN PLATELET VOLUME 10.6 fL (9.0-12.2); MONOCYTES % (AUTO) 5 % (0-12); NEUTROPHILS # (AUTO) 20.8 X 10^3 (1.8-7.8); NEUTROPHILS % (AUTO) 93 % (42-75); PLATELET COUNT 341 10^3/uL (130-400); WHITE BLOOD COUNT 22.5 10^3/uL (4.3-11.0)
[2021-09-13 15:23] LABS: INR 2.5 (0.8-1.4); PROTHROMBIN TIME PATIENT 27.4 SEC (12.2-14.7)
[2021-09-13 15:27] LABS: ALBUMIN 3.5 GM/DL (3.2-4.5); POTASSIUM 5.3 MMOL/L (3.6-5.0)
[2021-09-13 15:28] LABS: CALCIUM 9.3 MG/DL (8.5-10.1)
[2021-09-13 15:29] LABS: TOTAL PROTEIN 7.3 GM/DL (6.4-8.2)
[2021-09-13 15:31] LABS: BILIRUBIN,TOTAL 2.2 MG/DL (0.1-1.0)
[2021-09-13 15:33] LABS: CREATININE SERUM 2.36 MG/DL (0.60-1.30)
[2021-09-13 15:36] LABS: MAGNESIUM 2.4 MG/DL (1.6-2.4)
[2021-09-13] MEDS ORDERED: NS IV 1000 ML 1,000 ML IV SCH (16:00)
[2021-09-13] MEDS ORDERED: ONDANSETRON 4 MG/2 ML (SDV) Z0FRAN ONE (16:01)
[2021-09-13 16:07] LABS: LYMPHOCYTES % (MANUAL) 4 %; MONOCYTES % (MANUAL) 9 %; NEUTROPHILS % (MANUAL) 87 %
[2021-09-13 16:08] LABS: BURR CELLS MODERATE; ELLIPT/OVALOCYTES MODERATE
[2021-09-13] MEDS ORDERED: CEFEPIME INJECTION 2,000 MG in NS (IVPB) 50 ML IV ONE (16:15)
[2021-09-13 16:17] LABS: BILIRUBIN,URINE 1+ (NEGATIVE); CLARITY,URINE CLEAR; COLOR,URINE YELLOW; GLUCOSE, URINE (UA) NEGATIVE (NEGATIVE); KETONES,URINE NEGATIVE (NEGATIVE); LEUKOCYTE ESTERASE ,URINE NEGATIVE (NEGATIVE); NITRITE,URINE NEGATIVE (NEGATIVE); PH,URINE 5.5 (5-9); PROTEIN,URINE TRACE (NEGATIVE)
[2021-09-13 16:32] LABS: BACTERIA,URINE TRACE /HPF; SQUAMOUS EPITHELIAL CELL,UR RARE /HPF
--- NOTE | 2021-09-13 16:39 | Diagnostic Imaging Report ---
PROCEDURE: US Gallbladder. TECHNIQUE: Multiple real-time grayscale images were obtained over the right upper quadrant in various projections. INDICATION: 86-year-old male with elevated bilirubin, nausea and vomiting. COMPARISONS: None FINDINGS: Overall the study is difficult due to extensive bowel gas. The liver measures 15.3 cm in length at the midclavicular line shows uniform echotexture. There is no definite evidence of intraparenchymal mass or ductal dilatation. Gallbladder shows some biliary sludge and questionable wall thickening. The common duct is not clearly delineated. The pancreas, aorta, IVC and right kidney are obscured by overlying bowel gas. IMPRESSION: 1. Biliary sludge with some minimal gallbladder wall thickening. Perhaps a HIDA scan may be of further value. 2. Uniform echotexture within the liver with no evidence of intrahepatic ductal dilatation. The remainder of the exam is limited due to bowel gas. Dictated by: Dictated on workstation # [id number]
--- NOTE | 2021-09-13 16:42 | ED General ---
General Chief Complaint: General Problems/Pain Stated Complaint: NAUSEA Nursing Triage Note: PT TO RM 9 VIA WC. PT REPORTS SOA, DENIES PAIN, UNSURE IF HE VOMITED TODAY. PT REPORTS PT IS MORE CONFUSED THAN NORMAL, HAS BEEN EXPERIENCING N/V, AND HAS A WORSENING BED SORE ON BUTTOCKS X4-5 MONTHS. PT ALERT, NOT ORIENTED. Source of Information: Patient Exam Limitations: No Limitations History of Present Illness Date Seen by Provider: Sep 13, 2021 Time Seen by Provider: 14:26 Initial Comments This 86-year-old gentleman presents to the emergency room accompanied by his by private vehicle with concerns about acute confusion and vomiting. He has been ill for 2 to 3 days. He also has decubitus ulcers on his bilateral buttocks. He is afebrile at the time of presentation. states he has rather significant dementia and often does not know who she is. He is able to feed himself and bathe himself. She reports he fell a couple of days ago and hit his head. He has not felt well since then. There was no reported loss of consciousness. He appears to have atrial fibrillation with a heart rate around 100. He has no known history of atrial fibrillation. He is alert and able to answer some questions. He is disoriented to place and date. He does know his name and age. He does follow commands. Allergies and Home Medications Allergies Coded Allergies: No Known Drug Allergies (Unverified , 02/22/10) Patient Home Medication List Home Medication List Reviewed: Yes Amlodipine Besylate (Amlodipine Besylate) 10 Mg Tablet, 10 MG PO DAILY Prescribed by: KRISTIN JANG on 02/20/21 0738 Doxazosin Mesylate (Doxazosin Mesylate) 2 Mg Tablet, 2 MG PO DAILY, (Reported) Entered as Reported by: KATY KUMAR on 02/16/21 111 Ibuprofen (Ibuprofen) 200 Mg Tablet, 400 MG PO Q8H PRN for PAIN-MILD (1-4), (Reported) Entered as Reported by: KATY KUMAR on 02/16/21 111 Lisinopril (Lisinopril) 20 Mg Tablet, 20 MG PO DAILY@0900 Prescribed by: KRISTIN JANG on 02/20/21 0738 Metformin HCl (Metformin HCl) 500 Mg Tablet, 500 MG PO BID, (Reported) Entered as Reported by: KATY KUMAR on 02/16/21 1113 Metoprolol Tartrate (Metoprolol Tartrate) 100 Mg Tablet, 100 MG PO BID, (Reported) Entered as Reported by: KATY KUMAR on 02/16/21 1113 Omeprazole (Omeprazole) 20 Mg Capsule.dr, 20 MG PO 1200, (Reported) Entered as Reported by: KATY KUMAR on 02/16/21 1113 Review of Systems Review of Systems Constitutional: weakness EENTM: no symptoms reported Respiratory: no symptoms reported Cardiovascular: see HPI Gastrointestinal: see HPI Genitourinary: no symptoms reported Musculoskeletal: no symptoms reported Skin: no symptoms reported Psychiatric/Neurological: See HPI Hematologic/Lymphatic: No Symptoms Reported Immunological/Allergic: no symptoms reported Past Eozdeoj-Qqayus-Xxwzwk Hx Patient Social History Tobacco Use?: No Use of E-Cig and/or Vaping dev: No Substance use?: No Alcohol Use?: No Immunizations Up To Date First/Initial COVID19 Vaccinat: 2020 Second COVID19 Vaccination Blu: 2020 COVID19 Vaccine Information Services Consultant: PHILIPPE Past Medical History Surgeries: Yes Cardiac (Heart cath 2011 with no interventions) Respiratory: No Cardiac: Yes Hypertension Neurological: Yes Dementia Genitourinary: No Gastrointestinal: No Musculoskeletal: No Endocrine: Yes Diabetes, Non-Insulin dep HEENT: No Cancer: No Psychosocial: Yes (Behavior disturbances with dementia) Integumentary: No Family Medical History No Pertinent Family Hx Physical Exam-Suspected Sepsis Physical Exam Vital Signs Vital Signs - First Documented 09/13/21 14:14 Temp 35.9 Pulse 112 Resp 28 B/P (MAP) 189/134 (152) Pulse Ox 100 O2 Delivery Room Air Capillary Refill : Less Than 3 Seconds Blood Pressure Mean: 152 Height, Weight, BMI Height: '" Weight: lbs. oz. kg; 29.00 BMI Method:Estimated General Appearance: WD/WN, Mild Distress HEENT: PERRL/EOMI, Normal ENT Inspection, Other (Mucous membranes pasty) Neck: Normal Inspection; No JVD Respiratory: Lungs Clear, Normal Breath Sounds, No Accessory Muscle Use Cardiovascular: No Edema, No Murmur, Irregularly Irregular, Tachycardia Gastrointestinal: Normal Bowel Sounds, Non Tender, Soft; No Distended Extremity: Normal Inspection, No Calf Tenderness, No Pedal Edema Neurologic/Psychiatric: Alert, No Motor/Sensory Deficits, Other (Somewhat disoriented, follows command) Skin: normal color, warm/dry Focused Exam Sepsis Stage: Severe Sepsis Possible Source: Pulmonary Lactate Level 09/13/21 14:55: Lactic Acid Level 9.02*H 09/13/21 17:35: Lactic Acid Level 7.71*H Time of Focused Exam: 19:06 Respiratory: Normal Breath Sounds, No Accessory Muscle Use Cardiovascular: No Edema, Irregularly Irregular, Tachycardia Skin: normal color, warm/dry Lactic Acid Level Laboratory Tests Test 09/13/21 17:35 Lactic Acid Level 7.71 MMOL/L (0.50-2.00) *H Within 3hrs of presentation: Admin ABX, Blood cultures prior to ABX's, Focus exam, Lactate level, Other (Large volume bolus not given due to evidence of ac [place] heart failure with fluid overload) Progress/Results/Core Measures Suspected Sepsis SIRS Temperature: Pulse: 112 Respiratory Rate: 28 Laboratory Tests 09/13/21 14:55: White Blood Count 22.5H Blood Pressure 189 /134 Mean: 152 09/13/21 14:55: Lactic Acid Level 9.02*H 09/13/21 17:35: Lactic Acid Level 7.71*H Laboratory Tests 09/13/21 14:55: Creatinine 2.36H, INR Comment 2.5H, Platelet Count 341, Total Bilirubin 2.2H Results/Orders Lab Results Laboratory Tests Test 09/13/21 14:25 09/13/21 14:55 09/13/21 16:00 09/13/21 16:48 Range/Units Influenza Type A Antigen NEGATIVE NEGATIVE Influenza Type B Antigen NEGATIVE NEGATIVE White Blood Count 22.5 H 4.3-11.0 10^3/uL Red Blood Count 4.15 L 4.30-5.52 10^6/uL Hemoglobin 10.5 L 13.3-17.7 g/dL Hematocrit 35 L 40-54 % Mean Corpuscular Volume 85 80-99 fL Mean Corpuscular Hemoglobin 25 25-34 pg Mean Corpuscular Hemoglobin Concent 30 L 32-36 g/dL Red Cell Distribution Width 19.1 H 10.0-14.5 % Platelet Count 341 130-400 10^3/uL Mean Platelet Volume 10.6 9.0-12.2 fL Immature Granulocyte % (Auto) 1 % Neutrophils (%) (Auto) 93 H 42-75 % Lymphocytes (%) (Auto) 3 L 12-44 % Monocytes (%) (Auto) 5 0-12 % Eosinophils (%) (Auto) 0 0-10 % Basophils (%) (Auto) 0 0-10 % Neutrophils # (Auto) 20.8 H 1.8-7.8 X 10^3 Lymphocytes # (Auto) 0.6 L 1.0-4.0 X 10^3 Monocytes # (Auto) 1.0 0.0-1.0 X 10^3 Eosinophils # (Auto) 0.0 0.0-0.3 10^3/uL Basophils # (Auto) 0.0 0.0-0.1 10^3/uL Immature Granulocyte # (Auto) 0.1 0.0-0.1 10^3/uL Neutrophils % (Manual) 87 % Lymphocytes % (Manual) 4 % Monocytes % (Manual) 9 % Macrocytosis SLIGHT Stanley Cells MODERATE Elliptocytes MODERATE Prothrombin Time 27.4 H 12.2-14.7 SEC INR Comment 2.5 H 0.8-1.4 Activated Partial Thromboplast Time 35 24-35 SEC Sodium Level 140 135-145 MMOL/L Potassium Level 5.3 H 3.6-5.0 MMOL/L Chloride Level 104 98-107 MMOL/L Carbon Dioxide Level 12 L 21-32 MMOL/L Anion Gap 24 H 5-14 MMOL/L Blood Urea Nitrogen 55 H 7-18 MG/DL Creatinine 2.36 H 0.60-1.30 MG/DL Estimat Glomerular Filtration Rate 26 BUN/Creatinine Ratio 23 Glucose Level 62 L 70-105 MG/DL Lactic Acid Level 9.02 *H 0.50-2.00 MMOL/L Calcium Level 9.3 8.5-10.1 MG/DL Corrected Calcium 9.7 8.5-10.1 MG/DL Magnesium Level 2.4 1.6-2.4 MG/DL Total Bilirubin 2.2 H 0.1-1.0 MG/DL Aspartate Amino Transf (AST/SGOT) 2694 H 5-34 U/L Alanine Aminotransferase (ALT/SGPT) 1556 H 0-55 U/L Alkaline Phosphatase 115 40-136 U/L Total Creatine Kinase 1783 H 30-200 U/L Myoglobin 10755.8 H 10.0-92.0 NG/ML Troponin I 0.229 H <0.028 NG/ML C-Reactive Protein High Sensitivity 5.94 H 0.00-0.50 MG/DL B-Type Natriuretic Peptide 93414.8 H <100.0 PG/ML Total Protein 7.3 6.4-8.2 GM/DL Albumin 3.5 3.2-4.5 GM/DL Procalcitonin 0.90 H <0.10 NG/ML Urine Color YELLOW Urine Clarity CLEAR Urine pH 5.5 5-9 Urine Specific [place] >=1.030 1.016-1.022 Urine Protein TRACE H NEGATIVE Urine Glucose (UA) NEGATIVE NEGATIVE Urine Ketones NEGATIVE NEGATIVE Urine Nitrite NEGATIVE NEGATIVE Urine Bilirubin 1+ H NEGATIVE Urine Urobilinogen 1.0 < = 1.0 MG/DL Urine Leukocyte Esterase NEGATIVE NEGATIVE Urine RBC (Auto) NEGATIVE NEGATIVE Urine RBC NONE /HPF Urine WBC NONE /HPF Urine Squamous Epithelial Cells RARE /HPF Urine Crystals NONE /LPF Urine Bacteria TRACE /HPF Urine Casts PRESENT /LPF Urine Hyaline Casts 2-5 H /LPF Urine Mucus NEGATIVE /LPF Urine Culture Indicated CULTURE PENDING SARS-CoV-2 RNA (RT-PCR) Negative Negative Test 09/13/21 17:35 09/13/21 19:25 Range/Units Lactic Acid Level 7.71 *H 0.50-2.00 MMOL/L Glucometer 68 L 70-110 MG/DL My Orders Orders - TRISHA ESPINOZA MD Covid 19 Inhouse Test (09/13/21 14:26) Influenza A & B Antigens (09/13/21 14:26) Cbc With Automated Diff (09/13/21 15:06) Comprehensive Metabolic Panel (09/13/21 15:06) Blood Culture (09/13/21 15:06) Sputum Culture (09/13/21 15:06) Urinalysis (09/13/21 15:06) Urine Culture (09/13/21 15:06) Protime With Inr (09/13/21 15:06) Partial Thromboplastin Time (09/13/21 15:06) Chest 1 View, Ap/Pa Only (09/13/21 15:06) Ed Iv/Invasive Line Start (09/13/21 15:06) Vital Signs Adult Sepsis Patie Q15M (09/13/21 15:06) O2 (09/13/21 15:06) Remove Rings In Anticipation O (09/13/21 15:06) Lactic Acid Analyzer (09/13/21 15:06) Magnesium (09/13/21 15:06) Ekg Tracing (09/13/21 15:06) Myoglobin Serum (09/13/21 15:06) Monitor-Rhythm Ecg Trace Only (09/13/21 15:06) Lipid Panel (09/14/21 06:00) Ed Iv/Invasive Line Start (09/13/21 15:06) Troponin I Deepa (09/13/21 15:06) Procalcitonin (Pct) (09/13/21 15:06) Hs C Reactive Protein (09/13/21 15:06) Manual Differential (09/13/21 14:55) Bnp [place] (09/13/21 15:23) Straight Cath For Spec.-Adult (09/13/21 15:36) Ns Iv 1000 Ml (Sodium Chloride 0.9%) (09/13/21 16:00) Us Gallbladder [id number] (09/13/21 16:00) Ondansetron Injection (Zofran Injectio (09/13/21 16:01) Hepatitis Panel Acute (09/13/21 16:03) Cefepime Injection (Maxipime Injection) (09/13/21 16:15) Posadas Cath (09/13/21 16:24) Ct Head/Cervical Spine Wo (09/13/21 16:26) Ct Chest/Abdomen/Pelvis Wo (09/13/21 16:26) Coronavirus Sars-Cov-2 So 2019 (09/13/21 17:08) Ondansetron Injection (Zofran Injectio (09/13/21 18:00) Creatine Kinase (09/13/21 18:25) Accucheck Stat ONCE (09/13/21 18:45) D50w (Emergency) Syringe (Dextrose 50% 5 (09/13/21 19:00) D50w (Emergency) Syringe (Dextrose 50% 5 (09/13/21 18:54) Accucheck Stat ONCE (09/13/21 19:05) D50w (Emergency) Syringe (Dextrose 50% 5 (09/13/21 19:45) Accucheck Stat ONCE (09/13/21 19:41) Lorazepam Injection (Ativan Injection) (09/13/21 20:00) Medications Given in ED Current Medications Medications Dose Ordered Sig/Staci Route Start Time Stop Time Status Last Admin Dose Admin Cefepime HCl 2000 mg/Sodium Chloride 50 ml @ 100 mls/hr ONCE ONCE IV 09/13/21 16:15 09/13/21 16:44 DC 09/13/21 17:57 100 MLS/HR Ondansetron HCl 8 mg ONCE ONCE IVP 09/13/21 18:00 09/13/21 18:01 DC 09/13/21 16:03 8 MG Vital Signs/I&O 09/13/21 14:14 Temp 35.9 Pulse 112 Resp 28 B/P (MAP) 189/134 (152) Pulse Ox 100 O2 Delivery Room Air Capillary Refill : Less Than 3 Seconds Blood Pressure Mean: 152 Progress Note #1: Time: 16:43 Progress Note Patient appears to have significant severe sepsis with a lactic acid of 9. IV normal saline and cefepime are being administered for initial treatments. Gallbladder ultrasound was obtained showing some mild sludge with questionable wall thickening. Gallbladder ultrasound was obtained due to markedly elevated transaminases. Acute hepatitis panel is also pending. Dr. Hong has been consulted and we anticipate him placing a central line. CT of the head, cervical spine, chest, abdomen and pelvis are all pending. Influenza screen was negative. Covid antigen test is pending. I discussed CODE STATUS with his since he is confused and not able to appropriately answer the question himself. She states his quality of life is quite poor with significant dementia and she does not believe he should or would want to receive CPR or intubation. Progress Note #2: Time: 19:[address] imaging was unremarkable for injury. Patient appears to be septic. Given appearance of imaging of the chest, I suspect there is a right sided pneumonia causing sepsis. I discussed the case with Dr. Kern, Dr. Hunter, and Jareth. Patient may have Metformin toxicity in addition to severe sepsis. Blood sugar was slightly low at 62 on the initial blood draw. Fingerstick blood sugar later was 22. An amp of D50 was administered. Repeat fingerstick was 68. Another amp of D50 has been ordered. Patient has become restless and pulling at his lines. He removed the right EJ and a second left EJ has been placed. Ativan 0.5 mg IV has been ordered to control agitation. Acute hepatitis panel was obtained to further evaluate the marked elevation of transaminases. Although patient has new onset atrial fibrillation, anticoagulation is not being provided as his INR is presently 2.5 and he has notable acute kidney injury. ECG Initial ECG Impression Date: Sep 13, 2021 Initial ECG Impression Time: 15:05 Initial ECG Rate: 112 Comment Atrial fibrillation with no ST elevation or depression. No axis deviation. Mild RVR. Diagnostic Imaging Diagonstic Imaging: Ultrasound Plain Films/CT/US/NM/MRI: abdomen Comments NAME: KAYLEE JIMENEZ [facility] REC#: [id number] PT STATUS: REG ER : 1935 PHYSICIAN: TRISHA ESPINOZA MD ADMIT DATE: 09/13/21/ER Draft Date of Exam:09/13/21 US GALLBLADDER [id number] PROCEDURE: US Gallbladder. TECHNIQUE: Multiple real-time grayscale images were obtained over the right upper quadrant in various projections. INDICATION: 86-year-old male with elevated bilirubin, nausea and vomiting. COMPARISONS: None FINDINGS: Overall the study is difficult due to extensive bowel gas. The liver measures 15.3 cm in length at the midclavicular line shows uniform echotexture. There is no definite evidence of intraparenchymal mass or ductal dilatation. Gallbladder shows some biliary sludge and questionable wall thickening. The common duct is not clearly delineated. The pancreas, aorta, IVC and right kidney are obscured by overlying bowel gas. IMPRESSION: 1. Biliary sludge with some minimal gallbladder wall thickening. Perhaps a HIDA scan may be of further value. 2. Uniform echotexture within the liver with no evidence of intrahepatic ductal dilatation. The remainder of the exam is limited due to bowel gas. Dictated on workstation # [id number] Dict: 09/13/21 1632 Trans: 09/13/21 1639 [facility] [id number] Interpreted by: STACI WISE MD Diagonstic Imaging: Xray Plain Films/CT/US/NM/MRI: chest Comments NAME: KAYLEE JIMENEZ [facility] REC#: [id number] PT STATUS: REG ER : 1935 PHYSICIAN: TRISAH ESPINOZA MD ADMIT DATE: 09/13/21/ER Signed Date of Exam:09/13/21 CHEST 1 VIEW, AP/PA ONLY INDICATION: Dyspnea AP view of the chest is obtained with comparison made to study of 02/16/2021. There is continued cardiomegaly. Pulmonary vascularity is at the upper limits of normal. Slight increased density seen in the perihilar regions indicating edema. There is also blunting of the costophrenic sulci. No pneumothorax is seen. IMPRESSION: Findings are consistent with mild perihilar edema and probable small pleural effusions which could be on the basis of congestive heart failure. Dictated by: Dictated on workstation # [id number] Dict: 09/13/211712 Trans: 09/13/211757 CVB [id number] Interpreted by: LEESA REYES MD Electronically signed by: LEESA REYES MD 09/13/211757 Diagonstic Imaging: CT Plain Films/CT/US/NM/MRI: chest, abdomen, pelvis Comments CT chest, abdomen and pelvis viewed by me and report reviewed. See report below: NAME: KAYLEE JIMENEZ [facility] REC#: [id number] PT STATUS: REG ER : 1935 PHYSICIAN: TRISHA ESPINOZA MD ADMIT DATE: 09/13/21/ER Signed Date of Exam:09/13/21 CT CHEST/ABDOMEN/PELVIS WO PROCEDURE: CT chest, abdomen, and pelvis without contrast. TECHNIQUE: Multiple contiguous axial images were obtained through the chest, abdomen, and pelvis without the use of intravenous contrast. Auto Exposure Controls were utilized during the CT exam to meet ALARA standards for radiation dose reduction. INDICATION: Increasing confusion with dyspnea and worsening decubitus ulcers. CT CHEST: There is mild bilateral pleural fluid with associated mild subjacent atelectasis in the lung bases. Mild increased density in the perihilar regions is likely due to mild edema. There is generalized cardiomegaly with coronary artery calcification. Fluid extends into the right major fissure. Occasional calcified granulomas are seen in the right lung. There is background centrilobular emphysema. Moderate osteoarthritis involves the shoulder girdles, greater on the right. IMPRESSION: Findings are likely due to congestive heart failure with cardiomegaly, bilateral pleural fluid and perihilar edema. CT ABDOMEN AND PELVIS: Unenhanced images of liver and spleen reveal no focal abnormality. There is capsular splenic calcification. High-density material seen in the gallbladder which may be due to vicarious excretion of previously administered contrast. There is no evidence of focal pancreatic, adrenal gland or renal abnormality. No free fluid is seen. There is no signs of localized inflammation. Urinary bladder is decompressed and contains Posadas catheter and intraluminal gas. There is rather advanced lumbar spondylosis. IMPRESSION: No definite acute abnormalities identified. Posadas catheter is present in the urinary bladder. There is no evidence of abdominal pelvic abscess and no suspicious bone erosion is identified to indicate osteomyelitis. Dictated by: Dictated on workstation # [id number] Dict: 09/13/21 1715 Trans: 09/13/211757 CV [id number] Interpreted by: LEESA REYES MD Electronically signed by: LEESA REYES MD 09/13/218 Diagonstic Imaging: CT Plain Films/CT/US/NM/MRI: c-spine, head Comments CT head and C-spine viewed by me and report reviewed. See report below: NAME: KAYLEE JIMENEZ [facility] REC#: [id number] PT STATUS: REG ER : 1935 PHYSICIAN: TRISHA ESPINOZA MD ADMIT DATE: 09/13/21/ER Signed Date of Exam:09/13/21 CT HEAD/CERVICAL SPINE WO PROCEDURE: CT head and CT cervical spine without contrast. TECHNIQUE: Multiple contiguous axial images were obtained through the brain and cervical spine without the use of intravenous contrast. Sagittal and coronal reformations through the cervical spine were then performed. Auto Exposure Controls were utilized during the CT exam to meet ALARA standards for radiation dose reduction. INDICATION: Fall, head and neck injury, altered mental status, nausea and vomiting. COMPARISON: None FINDINGS: CT HEAD: The ventricles and cortical sulci are diffusely prominent consistent with generalized parenchymal volume loss. There is no midline shift or mass effect. No acute intracranial hemorrhage is seen. There is no CT evidence of acute territorial ischemia. There are areas of hypoattenuation in the periventricular white matter which is likely from chronic microvascular disease. The calvarium appears intact. Visualized nasal sinuses are clear. CT CERVICAL SPINE: There is straightening of the cervical lordosis without spondylolisthesis. There are advanced degenerative changes throughout the cervical spine with multilevel disc height loss. These appear most severe at C5-C6. Vertebral body heights are preserved and no acute fracture is seen. There is some motion artifact on multiple images. Soft tissues about the cervical spine demonstrate no acute abnormality. There is calcific atherosclerosis. There is a left pleural effusion. IMPRESSION: 1. No acute intracranial hemorrhage or CT evidence of acute territorial ischemia. 2. Advanced degenerative changes in the cervical spine with no acute fracture seen. 3. Left pleural effusion. Dictated by: Dictated on workstation # [id number] Dict: 09/13/21 1704 Trans: 09/13/211753 CV [id number] Interpreted by: JUWAN FERNANDEZ MD Electronically signed by: JUWAN FERNANDEZ MD 09/13/21 1754 Departure Communication (Admissions) Time/Spoke to Admitting Phy: 17:55 Dr. Kern Time/Spoke to Consulting Phy: 18:30 Dr. Hunter Impression Primary Impression: Severe sepsis Additional Impressions: Acute kidney injury New onset atrial fibrillation Congestive heart failure Qualified Codes: I50.9 - Heart failure, unspecified Elevated troponin Hypoglycemia Acute hepatitis Agitation Disposition: ADMITTED INPATIENT Condition: Critical Admissions Decision to Admit Reason: Admit from ER (General) Decision to Admit/Date: Sep 13, 2021 Time/Decision to Admit Time: 15:50 Departure-Patient Inst. Referrals: MCKINLEY PRITCHARD DO (PCP/Family) Primary Care Physician TRISHA ESPINOZA MD Sep 13, 2021 16:42
--- NOTE | 2021-09-13 17:14 | Diagnostic Imaging Report ---
PROCEDURE: CT head and CT cervical spine without contrast. TECHNIQUE: Multiple contiguous axial images were obtained through the brain and cervical spine without the use of intravenous contrast. Sagittal and coronal reformations through the cervical spine were then performed. Auto Exposure Controls were utilized during the CT exam to meet ALARA standards for radiation dose reduction. INDICATION: Fall, head and neck injury, altered mental status, nausea and vomiting. COMPARISON: None FINDINGS: CT HEAD: The ventricles and cortical sulci are diffusely prominent consistent with generalized parenchymal volume loss. There is no midline shift or mass effect. No acute intracranial hemorrhage is seen. There is no CT evidence of acute territorial ischemia. There are areas of hypoattenuation in the periventricular white matter which is likely from chronic microvascular disease. The calvarium appears intact. Visualized nasal sinuses are clear. CT CERVICAL SPINE: There is straightening of the cervical lordosis without spondylolisthesis. There are advanced degenerative changes throughout the cervical spine with multilevel disc height loss. These appear most severe at C5-C6. Vertebral body heights are preserved and no acute fracture is seen. There is some motion artifact on multiple images. Soft tissues about the cervical spine demonstrate no acute abnormality. There is calcific atherosclerosis. There is a left pleural effusion. IMPRESSION: 1. No acute intracranial hemorrhage or CT evidence of acute territorial ischemia. 2. Advanced degenerative changes in the cervical spine with no acute fracture seen. 3. Left pleural effusion. Dictated by: Dictated on workstation # [id number]
--- NOTE | 2021-09-13 17:17 | Diagnostic Imaging Report ---
INDICATION: Dyspnea AP view of the chest is obtained with comparison made to study of 02/16/2021. There is continued cardiomegaly. Pulmonary vascularity is at the upper limits of normal. Slight increased density seen in the perihilar regions indicating edema. There is also blunting of the costophrenic sulci. No pneumothorax is seen. IMPRESSION: Findings are consistent with mild perihilar edema and probable small pleural effusions which could be on the basis of congestive heart failure. Dictated by: Dictated on workstation # [id number]
--- NOTE | 2021-09-13 17:23 | Diagnostic Imaging Report ---
PROCEDURE: CT chest, abdomen, and pelvis without contrast. TECHNIQUE: Multiple contiguous axial images were obtained through the chest, abdomen, and pelvis without the use of intravenous contrast. Auto Exposure Controls were utilized during the CT exam to meet ALARA standards for radiation dose reduction. INDICATION: Increasing confusion with dyspnea and worsening decubitus ulcers. CT CHEST: There is mild bilateral pleural fluid with associated mild subjacent atelectasis in the lung bases. Mild increased density in the perihilar regions is likely due to mild edema. There is generalized cardiomegaly with coronary artery calcification. Fluid extends into the right major fissure. Occasional calcified granulomas are seen in the right lung. There is background centrilobular emphysema. Moderate osteoarthritis involves the shoulder girdles, greater on the right. IMPRESSION: Findings are likely due to congestive heart failure with cardiomegaly, bilateral pleural fluid and perihilar edema. CT ABDOMEN AND PELVIS: Unenhanced images of liver and spleen reveal no focal abnormality. There is capsular splenic calcification. High-density material seen in the gallbladder which may be due to vicarious excretion of previously administered contrast. There is no evidence of focal pancreatic, adrenal gland or renal abnormality. No free fluid is seen. There is no signs of localized inflammation. Urinary bladder is decompressed and contains Posadas catheter and intraluminal gas. There is rather advanced lumbar spondylosis. IMPRESSION: No definite acute abnormalities identified. Posadas catheter is present in the urinary bladder. There is no evidence of abdominal pelvic abscess and no suspicious bone erosion is identified to indicate osteomyelitis. Dictated by: Dictated on workstation # [id number]
[2021-09-13] MEDS ORDERED: ONDANSETRON 4 MG/2 ML (SDV) Z0FRAN IVP ONE (18:00)
[2021-09-13] MEDS ORDERED: ENOXAPARIN 80 MG/0.8 ML (LOVENOX) SYR SC ONE (18:45)
[2021-09-13] MEDS ORDERED: DEXTROSE 50% 50 ML (IMS) SYR ONE (18:54)
[2021-09-13] MEDS ORDERED: DEXTROSE 50% 50 ML (IMS) SYR IV ONE ×2 (19:00→19:45)
[2021-09-13] MEDS ORDERED: LORazepam INJ 2 MG/ML (ATIVAN) VIAL IVP ONE (20:00)
[2021-09-13] MEDS ORDERED: ACETAMINOPHEN 500 MG TAB (TYLENOL) PO PRN (21:45)
[2021-09-13] MEDS ORDERED: CATHETER FLUSH 10 ML SYR IV PRN (21:45)
[2021-09-13] MEDS ORDERED: ONDANSETRON 4 MG/2 ML (SDV) Z0FRAN IV PRN (21:45)
[2021-09-13] MEDS ORDERED: AZITHROMYCIN 500 MG/NS 250 ML IVPB IV ONE ×2 (22:00)
[2021-09-13] MEDS ORDERED: NOREPINEPHRINE 8 MG/250 ML 250 ML IV SCH (22:00)
[2021-09-13] MEDS ORDERED: EPINEPHrine 1 MG INJECTION 4 MG in NS (IVPB) 248 ML IV SCH (22:00)
[2021-09-13 22:11] LABS: HEPATITIS C ANTIBODY C Non-Reactive (Non-Reactive)
[2021-09-13] MEDS: VASOPRESSIN INJECTION 20 UNIT in NS (IVPB) 100 ML IV SCH (22:33)
[2021-09-13] MEDS ORDERED: FUROSEMIDE 40 MG/4 ML INJ (LASIX) ONE (22:36)
[2021-09-13] MEDS ORDERED: FUROSEMIDE 40 MG/4 ML INJ (LASIX) IVP ONE (22:45)
[2021-09-13] MEDS ORDERED: HEParin DRIP 25000 UNIT/500ML 500 ML IV SCH (23:15)
[2021-09-13] MEDS ORDERED: HEParin 1000 UNIT/ML (10ML VIAL) FOR BOLUS IV PRN (23:15)
[2021-09-13] MEDS: NS IV 1000 ML 1,000 ML IV SCH (23:29)
[2021-09-13] MEDS: CATHETER FLUSH 10 ML SYR IV SCH (23:29)
[2021-09-13 23:50] LABS: HEMATOCRIT 33 % (40-54); HEMOGLOBIN 10.1 g/dL (13.3-17.7); MEAN CORPUSCULAR HEMOGLOBIN 25 pg (25-34); MEAN CORPUSCULAR HGB CONC 30 g/dL (32-36); MEAN CORPUSCULAR VOLUME 83 fL (80-99); MEAN PLATELET VOLUME 10.6 fL (9.0-12.2); PLATELET COUNT 236 10^3/uL (130-400); WHITE BLOOD COUNT 26.6 10^3/uL (4.3-11.0)
[2021-09-14 00:02] LABS: INR 2.6 (0.8-1.4); PROTHROMBIN TIME PATIENT 28.6 SEC (12.2-14.7)
[2021-09-14 03:29] LABS: BASOPHILS # (AUTO) 0.1 10^3/uL (0.0-0.1); BASOPHILS % (AUTO) 0 % (0-10); EOSINOPHILS % (AUTO) 0 % (0-10); HEMATOCRIT 35 % (40-54); HEMOGLOBIN 10.3 g/dL (13.3-17.7); LYMPHOCYTES # (AUTO) 0.9 10^3/uL (1.0-4.0); LYMPHOCYTES % (AUTO) 3 % (12-44); MEAN CORPUSCULAR HEMOGLOBIN 25 pg (25-34); MEAN CORPUSCULAR HGB CONC 30 g/dL (32-36); MEAN CORPUSCULAR VOLUME 85 fL (80-99); MEAN PLATELET VOLUME 10.5 fL (9.0-12.2); MONOCYTES # (AUTO) 1.3 10^3/uL (0.0-1.0); MONOCYTES % (AUTO) 4 % (0-12); NEUTROPHILS # (AUTO) 26.6 10^3/uL (1.8-7.8); NEUTROPHILS % (AUTO) 92 % (42-75); PLATELET COUNT 235 10^3/uL (130-400)
[2021-09-14 03:38] LABS: ALBUMIN 3.1 GM/DL (3.2-4.5); POTASSIUM 5.5 MMOL/L (3.6-5.0)
[2021-09-14 03:39] LABS: CALCIUM 8.5 MG/DL (8.5-10.1)
[2021-09-14 03:40] LABS: TOTAL PROTEIN 6.4 GM/DL (6.4-8.2)
[2021-09-14 03:42] LABS: BILIRUBIN,TOTAL 2.2 MG/DL (0.1-1.0)
[2021-09-14 03:44] LABS: CREATININE SERUM 2.48 MG/DL (0.60-1.30); PHOSPHORUS 7.2 MG/DL (2.3-4.7)
[2021-09-14 03:47] LABS: MAGNESIUM 2.4 MG/DL (1.6-2.4)
[2021-09-14] MEDS ORDERED: CEFEPIME INJECTION 1,000 MG in NS (IVPB) 50 ML IV SCH (06:00)
[2021-09-14] MEDS ORDERED: KCL 20 MEQ TAB (K-DUR) PO SCH (06:00)
[2021-09-14] MEDS ORDERED: MAGNESIUM 1 GM/100 ML IVPB 100 ML IV SCH (06:00)
[2021-09-14] MEDS ORDERED: POTASSIUM CL 10MEQ/50ML IVPB 50 ML IV SCH (06:00)
[2021-09-14] MEDS: CATHETER FLUSH 10 ML SYR IV SCH ×3 (06:54→22:15)
[2021-09-14] MEDS: NS IV 1000 ML 1,000 ML IV SCH ×2 (06:55→07:05)
--- NOTE | 2021-09-14 09:02 | Diagnostic Imaging Report ---
EXAMINATION: Portable erect AP chest at 8:51 AM. INDICATION: Sepsis. FINDINGS: The cardiomegaly noted on the prior exam of 09/13/2021 is again evident and not significantly changed; however, in the interval since the prior study, diffuse alveolar/interstitial infiltrates have developed in each midlung and each lung base. These findings are most likely due to pneumonia/atelectasis. The central pulmonary vascularity remains prominent and there could be an element of pulmonary congestion present as well. Furthermore, there do appear to be small bilateral pleural effusions. The mediastinum is not widened. The osseous structures are intact. IMPRESSION: The appearance of the chest has worsened since the prior study as alveolar/interstitial pulmonary infiltrates have developed in both lungs. These findings may be secondary to pneumonia, atelectasis, pulmonary edema, or a combination of all three. Dictated by: Dictated on workstation # [id number]
[2021-09-14] MEDS: VASOPRESSIN INJECTION 20 UNIT in NS (IVPB) 100 ML IV SCH (10:08)
--- NOTE | 2021-09-14 10:15 | Consultation-Cardiology ---
HPI-Cardiology Cardiology Consultation Date of Consultation 09/14/21 Date of Admission Time Seen by Provider: 10:10 Indication: Atrial fibrillation HPI 86-year-old gentleman presented to the emergency room for confusion and generalized weakness with vomiting. Has been ill for few days. Poor hygiene. He has decubitus ulcer on his buttocks. Patient suffer from dementia, unable to provide any history. He was noted to have atrial fibrillation with borderline tachycardia, acute renal failure, lactic acidosis. Home Medications & Allergies Allergies: Coded Allergies: No Known Drug Allergies (Unverified , 02/22/10) Home Medication List Reviewed: Yes HVI-Olqblv-Himrdx Hx Patient Social History Marital Status: Employed/Student: retired 2nd Hand Smoke Exposure: No Have you traveled recently?: No Alcohol Use?: No Past Medical History Discussed below Family Medical History Significant Family History: No Pertinent Family Hx Family Medical Hx Noncontributory Review of Systems-General Review of Systems Constitutional: malaise, weakness, other (Lethargic) EENTM: see HPI, no symptoms reported Respiratory: see HPI, dyspnea on exertion Cardiovascular: see HPI; No chest pain, No edema, No Hx of Intervention, No palpitations, No syncope, No vascular heart diseas, No other Gastrointestinal: no symptoms reported, see HPI Genitourinary: no symptoms reported, see HPI Musculoskeletal: no symptoms reported, see HPI Skin: no symptoms reported, see HPI Psychiatric/Neurological: See HPI Reviewed Test Results Reviewed Test Results Lab Laboratory Tests Test 09/13/21 14:25 09/13/21 14:55 09/13/21 16:00 09/13/21 16:48 Range/Units Coronavirus (COVID-19)(PCR) Negative Negative Influenza Type A Antigen NEGATIVE NEGATIVE Influenza Type B Antigen NEGATIVE NEGATIVE White Blood Count 22.5 H 4.3-11.0 10^3/uL Red Blood Count 4.15 L 4.30-5.52 10^6/uL Hemoglobin 10.5 L 13.3-17.7 g/dL Hematocrit 35 L 40-54 % Mean Corpuscular Volume 85 80-99 fL Mean Corpuscular Hemoglobin 25 25-34 pg Mean Corpuscular Hemoglobin Concent 30 L 32-36 g/dL Red Cell Distribution Width 19.1 H 10.0-14.5 % Platelet Count 341 130-400 10^3/uL Mean Platelet Volume 10.6 9.0-12.2 fL Immature Granulocyte % (Auto) 1 % Neutrophils (%) (Auto) 93 H 42-75 % Lymphocytes (%) (Auto) 3 L 12-44 % Monocytes (%) (Auto) 5 0-12 % Eosinophils (%) (Auto) 0 0-10 % Basophils (%) (Auto) 0 0-10 % Neutrophils # (Auto) 20.8 H 1.8-7.8 X 10^3 Lymphocytes # (Auto) 0.6 L 1.0-4.0 X 10^3 Monocytes # (Auto) 1.0 0.0-1.0 X 10^3 Eosinophils # (Auto) 0.0 0.0-0.3 10^3/uL Basophils # (Auto) 0.0 0.0-0.1 10^3/uL Immature Granulocyte # (Auto) 0.1 0.0-0.1 10^3/uL Neutrophils % (Manual) 87 % Lymphocytes % (Manual) 4 % Monocytes % (Manual) 9 % Macrocytosis SLIGHT [place] Cells MODERATE Elliptocytes MODERATE Prothrombin Time 27.4 H 12.2-14.7 SEC INR Comment 2.5 H 0.8-1.4 Activated Partial Thromboplast Time 35 24-35 SEC Sodium Level 140 135-145 MMOL/L Potassium Level 5.3 H 3.6-5.0 MMOL/L Chloride Level 104 98-107 MMOL/L Carbon Dioxide Level 12 L 21-32 MMOL/L Anion Gap 24 H 5-14 MMOL/L Blood Urea Nitrogen 55 H 7-18 MG/DL Creatinine 2.36 H 0.60-1.30 MG/DL Estimat Glomerular Filtration Rate 26 BUN/Creatinine Ratio 23 Glucose Level 62 L 70-105 MG/DL Lactic Acid Level 9.02 *H 0.50-2.00 MMOL/L Calcium Level 9.3 8.5-10.1 MG/DL Corrected Calcium 9.7 8.5-10.1 MG/DL Magnesium Level 2.4 1.6-2.4 MG/DL Total Bilirubin 2.2 H 0.1-1.0 MG/DL Aspartate Amino Transf (AST/SGOT) 2694 H 5-34 U/L Alanine Aminotransferase (ALT/SGPT) 1556 H 0-55 U/L Alkaline Phosphatase 115 40-136 U/L Total Creatine Kinase 1783 H 30-200 U/L Myoglobin 37515.8 H 10.0-92.0 NG/ML Troponin I 0.229 H <0.028 NG/ML C-Reactive Protein High Sensitivity 5.94 H 0.00-0.50 MG/DL B-Type Natriuretic Peptide 04935.8 H <100.0 PG/ML Total Protein 7.3 6.4-8.2 GM/DL Albumin 3.5 3.2-4.5 GM/DL Procalcitonin 0.90 H <0.10 NG/ML Hepatitis A IgM Antibody Non-Reactive Non-Reactive Hepatitis B Surface Antigen Non-Reactive Non-Reactive Hepatitis B Core IgM Antibody Non-Reactive Non-Reactive Hepatitis C Antibody Non-Reactive Non-Reactive Urine Color YELLOW Urine Clarity CLEAR Urine pH 5.5 5-9 Urine Specific [place] >=1.030 1.016-1.022 Urine Protein TRACE H NEGATIVE Urine Glucose (UA) NEGATIVE NEGATIVE Urine Ketones NEGATIVE NEGATIVE Urine Nitrite NEGATIVE NEGATIVE Urine Bilirubin 1+ H NEGATIVE Urine Urobilinogen 1.0 < = 1.0 MG/DL Urine Leukocyte Esterase NEGATIVE NEGATIVE Urine RBC (Auto) NEGATIVE NEGATIVE Urine RBC NONE /HPF Urine WBC NONE /HPF Urine Squamous Epithelial Cells RARE /HPF Urine Crystals NONE /LPF Urine Bacteria TRACE /HPF Urine Casts PRESENT /LPF Urine Hyaline Casts 2-5 H /LPF Urine Mucus NEGATIVE /LPF Urine Culture Indicated CULTURE PENDING SARS-CoV-2 RNA (RT-PCR) Negative Negative Test 09/13/21 17:35 09/13/21 19:25 09/13/21 20:22 09/13/21 21:21 Range/Units Lactic Acid Level 7.71 *H 0.50-2.00 MMOL/L Glucometer 68 L 151 H 102 70-110 MG/DL Test 09/13/21 22:04 09/13/21 23:27 09/13/21 23:38 09/13/21 23:39 Range/Units Glucometer 167 H 187 H 192 H 70-110 MG/DL White Blood Count 26.6 H 4.3-11.0 10^3/uL Red Blood Count 3.98 L 4.30-5.52 10^6/uL Hemoglobin 10.1 L 13.3-17.7 g/dL Hematocrit 33 L 40-54 % Mean Corpuscular Volume 83 80-99 fL Mean Corpuscular Hemoglobin 25 25-34 pg Mean Corpuscular Hemoglobin Concent 30 L 32-36 g/dL Red Cell Distribution Width 19.0 H 10.0-14.5 % Platelet Count 236 130-400 10^3/uL Mean Platelet Volume 10.6 9.0-12.2 fL Prothrombin Time 28.6 H 12.2-14.7 SEC INR Comment 2.6 H 0.8-1.4 Activated Partial Thromboplast Time 38 H 24-35 SEC Lactic Acid Level 6.86 *H 0.50-2.00 MMOL/L Test 09/14/21 03:07 09/14/21 03:14 09/14/21 06:07 09/14/21 08:15 Range/Units Glucometer 109 70-110 MG/DL White Blood Count 29.0 H 4.3-11.0 10^3/uL Red Blood Count 4.06 L 4.30-5.52 10^6/uL Hemoglobin 10.3 L 13.3-17.7 g/dL Hematocrit 35 L 40-54 % Mean Corpuscular Volume 85 80-99 fL Mean Corpuscular Hemoglobin 25 25-34 pg Mean Corpuscular Hemoglobin Concent 30 L 32-36 g/dL Red Cell Distribution Width 19.2 H 10.0-14.5 % Platelet Count 235 130-400 10^3/uL Mean Platelet Volume 10.5 9.0-12.2 fL Immature Granulocyte % (Auto) 1 % Neutrophils (%) (Auto) 92 H 42-75 % Lymphocytes (%) (Auto) 3 L 12-44 % Monocytes (%) (Auto) 4 0-12 % Eosinophils (%) (Auto) 0 0-10 % Basophils (%) (Auto) 0 0-10 % Neutrophils # (Auto) 26.6 H 1.8-7.8 10^3/uL Lymphocytes # (Auto) 0.9 L 1.0-4.0 10^3/uL Monocytes # (Auto) 1.3 H 0.0-1.0 10^3/uL Eosinophils # (Auto) 0.0 0.0-0.3 10^3/uL Basophils # (Auto) 0.1 0.0-0.1 10^3/uL Immature Granulocyte # (Auto) 0.2 H 0.0-0.1 10^3/uL Sodium Level 140 135-145 MMOL/L Potassium Level 5.5 H 3.6-5.0 MMOL/L Chloride Level 107 98-107 MMOL/L Carbon Dioxide Level 10 L 21-32 MMOL/L Anion Gap 23 H 5-14 MMOL/L Blood Urea Nitrogen 64 H 7-18 MG/DL Creatinine 2.48 H 0.60-1.30 MG/DL Estimat Glomerular Filtration Rate 25 BUN/Creatinine Ratio 26 Glucose Level 144 H 70-105 MG/DL Calcium Level 8.5 8.5-10.1 MG/DL Corrected Calcium 9.2 8.5-10.1 MG/DL Phosphorus Level 7.2 H 2.3-4.7 MG/DL Magnesium Level 2.4 1.6-2.4 MG/DL Total Bilirubin 2.2 H 0.1-1.0 MG/DL Aspartate Amino Transf (AST/SGOT) 2957 #H 5-34 U/L Alanine Aminotransferase (ALT/SGPT) 1843 #H 0-55 U/L Alkaline Phosphatase 105 40-136 U/L Total Protein 6.4 6.4-8.2 GM/DL Albumin 3.1 L 3.2-4.5 GM/DL Triglycerides Level 109 <150 MG/DL Cholesterol Level 179 < 200 MG/DL LDL Cholesterol Direct 140 H 1-129 MG/DL VLDL Cholesterol 22 5-40 MG/DL HDL Cholesterol 29 L 40-60 MG/DL Activated Partial Thromboplast Time 54 H 24-35 SEC Lactic Acid Level 6.15 *H 7.48 *H 0.50-2.00 MMOL/L Ammonia 92 H 11-32 UMOL/L Physical Exam Physical Exam Vital Signs Vital Signs - First Documented 09/13/21 14:14 Temp 35.9 Pulse 112 Resp 28 B/P (MAP) 189/134 (152) Pulse Ox 100 O2 Delivery Room Air Capillary Refill : Less Than 3 Seconds Height, Weight, BMI Height: '" Weight: lbs. oz. kg; 26.00 BMI Method:Estimated General Appearance: WD/WN, Moderate Distress HEENT: PERRL/EOMI, Normal ENT Inspection, Other (Mucous membranes pasty) Neck: Normal Inspection; No JVD Respiratory: No Accessory Muscle Use, Crackles Cardiovascular: No Edema, Irregularly Irregular, Tachycardia Gastrointestinal: Normal Bowel Sounds, Non Tender, Soft; No Distended Extremity: Normal Inspection, No Calf Tenderness, No Pedal Edema Neurologic/Psychiatric: Alert, No Motor/Sensory Deficits, Other (Somewhat disoriented, follows command) A/P-Cardiology Admission Diagnosis Sepsis Atrial fibrillation Acute renal failure Acute liver failure Assessment/Plan Sepsis, septic shock, blood pressure is better, receiving antibiotic and IV fluid. Continue to monitor Pneumonia, receiving antibiotic managed by primary care physician Atrial fibrillation, rate is better controlled. Continue to monitor started on heparin drip, continue to monitor Acute renal failure, receiving IV fluids, monitor renal function Lactic acidosis secondary to sepsis, receiving IV fluid and antibiotics Shock liver, probably secondary to hypotension. Poor hygiene. Dementia, advanced, unable to provide any history Consider comfort care. Poor prognosis JUDY ALAS MD Sep 14, 2021 10:15
--- NOTE | 2021-09-14 10:44 | Tele-ICU Progress Note ---
Subjective Date Seen by a Provider: Sep 14, 2021 Time Seen by a Provider: 10:43 Sepsis Event Evaluation Height, Weight, BMI Height: '" Weight: lbs. oz. kg; 26.00 BMI Method:Estimated Focused Exam Lactate Level 09/14/21 06:07: Lactic Acid Level 6.15*H 09/14/21 08:15: Lactic Acid Level 7.48*H 09/14/21 10:30: Time of Focused Exam: 19:06 Lactic Acid Level Laboratory Tests Test 09/14/21 08:15 09/14/21 10:30 Lactic Acid Level 7.48 MMOL/L (0.50-2.00) *H Exam Exam Patient acknowledged, consented, and participated in this virtual visit which was conducted using real time audio/video Vital Signs Date Time Temp Pulse Resp B/P (MAP) Pulse Ox O2 Delivery O2 Flow Rate FiO2 09/14/21 10:08 105 155/87 09/14/21 10:00 98 20 148/86 91 Room Air 09/14/21 09:00 105 12 155/87 95 Room Air 09/14/21 08:00 112 39 141/84 100 Room Air 09/14/21 07:00 103 09/14/21 07:00 101 35 143/90 100 Room Air 09/14/21 06:00 98 20 144/87 94 Room Air 09/14/21 05:00 104 23 163/95 97 Room Air 09/14/21 04:00 92 24 165/95 100 Room Air 09/14/21 04:00 99 Room Air 09/14/21 03:06 35.5 09/14/21 03:00 96 20 144/95 100 Room Air 09/14/21 02:00 93 24 150/83 100 Room Air 09/14/21 01:00 84 09/14/21 01:00 84 24 127/86 100 Room Air 09/14/21 00:00 99 Room Air 09/14/21 00:00 102 18 134/74 98 Room Air 09/13/21 23:00 101 19 162/77 100 Room Air 09/13/21 22:27 35.6 09/13/21 22:00 106 19 161/95 100 Room Air 09/13/21 21:30 106 19 142/97 100 Room Air 09/13/21 21:00 96 22 164/107 100 Room Air 09/13/21 20:45 101 23 174/89 100 Room Air 09/13/21 20:30 98 17 151/97 100 Room Air 09/13/21 20:25 35.5 99 21 173/95 100 Room Air 09/13/21 20:24 99 Room Air 09/13/21 20:15 104 21 168/91 100 Room Air 09/13/21 20:08 114 09/13/21 19:56 102 20 165/119 99 Room Air 09/13/21 14:14 35.9 112 28 189/134 (152) 100 Room Air I & O 09/14/21 06:59 Intake Total 1050 ml Output Total 340 ml Balance 710 ml Height & Weight Height: '" Weight: lbs. oz. kg; 26.00 BMI Method:Estimated General Appearance: WD/WN, Moderate Distress HEENT: PERRL/EOMI, Normal ENT Inspection, Other (Mucous membranes pasty) Neck: Normal Inspection; No JVD Respiratory: No Accessory Muscle Use, Crackles Cardiovascular: No Edema, Irregularly Irregular, Tachycardia Capillary Refill: Less Than 3 Seconds Extremity: Normal Inspection, No Calf Tenderness, No Pedal Edema Neurologic/Psychiatric: Alert, No Motor/Sensory Deficits, Other (Somewhat disoriented, follows command) Results Lab Laboratory Tests 09/13/21 14:55 09/13/21 23:38 09/14/21 03:14 Assessment/Plan Assessment/Plan (Tele-ICU Physician , Progress Note ) Available chart/ vitals / labs / Images reviewed Video assessment done using teleICU camera, rest of exam as per RN Discussed with RN , EXAM PER RN Events overnight : Afebrile FiO2 - ra I/O = pos Drips: ms 150 Pressors: , hemodynamically stable Consultants: cards Hospital course: 09/13 - AMS, MAGLAY A/P MAGALY - cont hydration , follow Leukocytosis - US - Biliary sludge with some minimal gallbladder wall thickening. - possible PNA - cont abx Liver failure - ? shock liver - US and CT abd reviewed - no evidence of intrahepatic ductal dilatation lactic acidosis - combination of stephen A and B , / metformin related ? coagulopathy - with liver failure A finb , RVR - on heparin gtt - rate controlled , as per cards elev troponin ( in face of MAGALY ) - as per cards Lines : periph(Central Line Necessity Reviewed) Posadas: + OG: Nutrition: Analgesia: Anxiety/ delirium VTE Prophylaxis: hep gtt Stress Ulcer Prophylaxis: Plans in collaboration with bedside consultants and IM MDs. Discussed with RN to reach out if any questions or concerns A total of 31 minutes of critical care time was devoted to this patient today, required to treat and/or prevent further deterioration of critical care condition ( as above) . ASHA FELDMAN MD Sep 14, 2021 10:44
[2021-09-14] MEDS ORDERED: GLYCOPYRROLATE 0.2 MG/ML (ROBINUL) 2 ML VIAL IV PRN ×8 (13:15)
[2021-09-14] MEDS ORDERED: RT-ALBUTEROL/IPRATROPIUM 3 ML (DUONEB) VIAL INH PRN ×8 (13:15)
[2021-09-14] MEDS ORDERED: PROMETHAZINE INJ 25 MG/ML (PHENERGAN) AMP IVP PRN ×8 (13:15)
[2021-09-14] MEDS ORDERED: ARTIFICAL TEARS 0.4 ML UNIT DOSE (REFRESH PLUS) OU PRN ×8 (13:15)
[2021-09-14] MEDS ORDERED: LORazepam INJ 2 MG/ML (ATIVAN) VIAL IVP PRN ×7 (13:15)
[2021-09-14] MEDS ORDERED: ACETAMINOPHEN 650 MG SUPP (TYLENOL) PR PRN ×8 (13:15)
[2021-09-14] MEDS ORDERED: SALIVA STIMULANT MOUTH SPRAY (BIOTENE) 1.5 OZ MM PRN ×8 (13:15)
[2021-09-14] MEDS ORDERED: ONDANSETRON 4 MG/2 ML (SDV) Z0FRAN IVP PRN ×8 (13:15)
[2021-09-14] MEDS ORDERED: BISACODYL 10 MG SUPP (DULCOLAX) PR PRN ×8 (13:15)
[2021-09-14] MEDS ORDERED: morphine INJ 4 MG/ML 1 ML (VIAL/SYRINGE) IV PRN ×7 (13:15)
[2021-09-14] MEDS: LORazepam INJ 2 MG/ML (ATIVAN) VIAL IVP PRN (15:11)
[2021-09-14] MEDS: morphine INJ 4 MG/ML 1 ML (VIAL/SYRINGE) IV PRN ×2 (15:12→22:15)
[2021-09-14] MEDS ORDERED: AZITHROMYCIN 250 MG/NS 250 ML IVPB IV SCH ×2 (21:00)
--- NOTE | 2021-09-14 21:47 | History & Physical-Hospitalist ---
History of Present Illness HPI/Chief Complaint Davide Goldberg is an 86 year old male with PMH advanced dementia, HTN, T2DM, GERD, BPH, who presented with confusion and vomiting. He lives at home with his . He has advanced dementia. He is unable to provide any history because he is unresponsive. He was admitted with septic shock due to pneumonia. Source: family, RN/MD Exam Limitations: clinical condition Date Seen 09/14/21 Time Seen by a Provider: 10:00 Attending Physician Anastasiia Ortiz MD PCP Juan Xavier DO Referring Physician Date of Admission Sep 13, 2021 at 18:24 Home Medications & Allergies Home Medications Reviewed patient Home Medication Reconciliation performed by pharmacy medication reconciliations apprentice technician and/or nursing. Patients Allergies have been reviewed. Allergies Allergies Coded Allergies No Known Drug Allergies (Unverified02/22/10) Past Dkjehqc-Otkmxg-Jwpecr Hx Patient Social History Marrital Status: Employed/Student: retired Tobacco Use?: No Use of E-Cig and/or Vaping dev: No Substance use?: No Alcohol Use?: No Pt feels they are or have been: Unable to obtain Immunizations Up To Date First/Initial COVID19 Vaccinat: 2020 Second COVID19 Vaccination Blu: 2020 Current Status Advance Directives: No Communicates: Verbally Primary Language: Nigerian Preferred Spoken Language: Nigerian Past Medical History Surgeries: Cardiac (Heart cath 2011 with no interventions) Hypertension Dementia Diabetes, Non-Insulin dep Family Medical History No Pertinent Family Hx Review of Systems ROS-Unable to Obtain: unresponsive Constitutional: see HPI Physical Exam Physical Exam Vital Signs Vital Signs - First Documented 09/13/21 14:14 Temp 35.9 Pulse 112 Resp 28 B/P (MAP) 189/134 (152) Pulse Ox 100 O2 Delivery Room Air Capillary Refill : Less Than 3 Seconds Height, Weight, BMI Height: '" Weight: lbs. oz. kg; 26.00 BMI Method:Estimated General Appearance: Chronically ill, Moderate Distress (uncomfortable) HEENT: PERRL/EOMI, Pharynx Normal Respiratory: Crackles, Respiratory Distress (tachypnea) Cardiovascular: Irregularly Irregular, Tachycardia Gastrointestinal: Normal Bowel Sounds, Soft Extremity: Normal Inspection, Pedal Edema Neurologic/Psychiatric: Other (withdraws to pain) Skin: Cool, Mottled Results Results/Procedures Labs Laboratory Tests 09/13/21 14:55 09/13/21 23:38 09/14/21 03:14 Patient resulted labs reviewed. Imaging: Reviewed Imaging Report Assessment/Plan Admission Diagnosis Septic shock Admission Status: Inpatient Order (span 2 midnights) Reason for Inpatient Admission: Pneumonia Assessment and Plan Septic shock Pneumonia Lactic acidosis Acute kidney injury Shock liver Acute heart failure with reduced ejection fraction Multiorgan failure Advanced dementia Poor prognosis Goals of care discussion Comfort measures only status Chest imaging concerning for pneumonia Lactic acid persistently elevated Kidney failure worsening, minimal urine output Palliative care consulted Discussed poor prognosis with family, decision made to transition to comfort measures only status Critical Care Critically Ill Patient Diagnosis/Problems Diagnosis/Problems (1) Septic shock Status: Acute (2) PNA (pneumonia) Status: Acute (3) Lactic acidosis Status: Acute (4) MAGALY (acute kidney injury) Status: Acute (5) Shock liver Status: Acute (6) Multiorgan failure Status: Acute (7) Advanced dementia Status: Chronic (8) Poor prognosis Status: Acute (9) Goals of care, counseling/discussion Status: Acute (10) Comfort measures only status Status: Acute (11) Acute HFrEF (heart failure with reduced ejection fraction) Status: Acute (12) NSTEMI (non-ST elevation myocardial infarction) Status: Acute ANASTASIIA ORTIZ MD Sep 14, 2021 21:47
[2021-09-15] MEDS: morphine INJ 4 MG/ML 1 ML (VIAL/SYRINGE) IV PRN ×2 (04:22→19:10)
[2021-09-15] MEDS: CATHETER FLUSH 10 ML SYR IV SCH ×3 (04:22→20:58)
[2021-09-15] MEDS: LORazepam INJ 2 MG/ML (ATIVAN) VIAL IVP PRN (09:21)
[2021-09-15] MEDS ORDERED: PERMETHRIN (NIX) 1% LOTION 60 ML BTL TOP ONE (09:45)
--- NOTE | 2021-09-15 12:34 | Cardiology Progress Note ---
Subjective Date Seen by Provider: Sep 15, 2021 Time Seen by Provider: 12:33 Subjective/Events-last exam Patient is laying down in bed, lethargic, family members at the bedside Focused Exam Lactate Level 09/14/21 08:15: Lactic Acid Level 7.48*H 09/14/21 10:30: Lactic Acid Level 6.63*H 09/14/21 12:35: Lactic Acid Level 6.59*H Time of Focused Exam: 19:06 Objective-Cardiology Exam Last Set of Vital Signs Vital Signs 09/14/21 09/14/21 09/14/21 12:00 13:00 19:19 Temp 36.2 Pulse 98 Resp 38 B/P (MAP) 152/89 Pulse Ox 93 O2 Delivery Room Air I&O Intake and Output 09/15/21 00:00 Intake Total 0 ml Output Total 130 ml Balance -130 ml Intake Oral 0 ml Output Urine Total 130 ml General: Moderate Distress, Other (Lethargic) HEENT: Atraumatic Neck: Supple Heart: Regular Rate Extremities: No Clubbing, No Cyanosis Results Lab Laboratory Tests Test 09/14/21 12:35 Range/Units Lactic Acid Level 6.59 *H 0.50-2.00 MMOL/L A/P-Cardiology Admission Diagnosis Sepsis Atrial fibrillation Acute renal failure Acute liver failure Assessment/Plan Sepsis, septic shock, blood pressure is better, receiving antibiotic and IV fluid. Continue to monitor Pneumonia, receiving antibiotic managed by primary care physician Atrial fibrillation, rate is better controlled. Continue to monitor started on heparin drip, continue to monitor Acute renal failure, receiving IV fluids, monitor renal function Lactic acidosis secondary to sepsis, receiving IV fluid and antibiotics Shock liver, probably secondary to hypotension. Poor hygiene, body and head lice Dementia, advanced, unable to provide any history Consider comfort care. Poor prognosis JUDY ALAS MD Sep 15, 2021 12:34
[2021-09-16] MEDS: CATHETER FLUSH 10 ML SYR IV SCH ×2 (06:16→15:10)
[2021-09-16] MEDS: morphine INJ 4 MG/ML 1 ML (VIAL/SYRINGE) IV PRN (06:34)
--- NOTE | 2021-09-16 17:13 | Progress Note - Hospitalist ---
Subjective HPI/CC On Admission Date Seen by Provider: Sep 15, 2021 Time Seen by Provider: 11:45 Davide Goldberg is an 86 year old male with PMH advanced dementia, HTN, T2DM, GERD, BPH, who presented with confusion and vomiting. He lives at home with his . He has advanced dementia. He is unable to provide any history because he is unresponsive. He was admitted with septic shock due to pneumonia. Subjective/Events-last exam He remains unresponsive. Focused Exam Lactate Level 09/14/21 08:15: Lactic Acid Level 7.48*H 09/14/21 10:30: Lactic Acid Level 6.63*H 09/14/21 12:35: Lactic Acid Level 6.59*H Time of Focused Exam: 19:06 Objective Exam Vital Signs Vital Signs Date Time Temp Pulse Resp B/P (MAP) Pulse Ox O2 Delivery O2 Flow Rate FiO2 09/16/21 08:00 Room Air 09/14/21 13:00 98 09/14/21 12:00 36.2 09/14/21 12:00 38 152/89 93 Capillary Refill : Less Than 3 Seconds General Appearance: No Apparent Distress, Chronically ill, Other (unresponsive) Respiratory: Decreased Breath Sounds, Other (periods of apnea, Sylvain-Ladd breathing) Cardiovascular: Regular Rate, Rhythm Gastrointestinal: Normal Bowel Sounds, Soft Extremity: No Inflammation; Pedal Edema Neurologic/Psychiatric: Other (unresponsive) Skin: Normal Color, Warm/Dry Results/Procedures Lab Patient resulted labs reviewed. Imaging: Reviewed Imaging Report Assessment/Plan Assessment and Plan Assess & Plan/Chief Complaint Septic shock Pneumonia Lactic acidosis Acute kidney injury Shock liver Acute heart failure with reduced ejection fraction Multiorgan failure Advanced dementia Poor prognosis Goals of care discussion Comfort measures only status Continue comfort measures Critical Care Critically Ill Patient Diagnosis/Problems Diagnosis/Problems (1) Septic shock Status: Acute (2) PNA (pneumonia) Status: Acute (3) Lactic acidosis Status: Acute (4) MAGALY (acute kidney injury) Status: Acute (5) Shock liver Status: Acute (6) Multiorgan failure Status: Acute (7) Advanced dementia Status: Chronic (8) Poor prognosis Status: Acute (9) Goals of care, counseling/discussion Status: Acute (10) Comfort measures only status Status: Acute (11) Acute HFrEF (heart failure with reduced ejection fraction) Status: Acute (12) NSTEMI (non-ST elevation myocardial infarction) Status: Acute ANGEL,ANASTASIIA M MD Sep 16, 2021 17:13
--- NOTE | 2021-09-16 17:15 | Progress Note - Hospitalist ---
Subjective HPI/CC On Admission Date Seen by Provider: Sep 16, 2021 Time Seen by Provider: 10:35 Davide Goldberg is an 86 year old male with PMH advanced dementia, HTN, T2DM, GERD, BPH, who presented with confusion and vomiting. He lives at home with his . He has advanced dementia. He is unable to provide any history because he is unresponsive. He was admitted with septic shock due to pneumonia. Subjective/Events-last exam He remains unresponsive. His and son are at the bedside and were updated. Focused Exam Lactate Level 09/14/21 08:15: Lactic Acid Level 7.48*H 09/14/21 10:30: Lactic Acid Level 6.63*H 09/14/21 12:35: Lactic Acid Level 6.59*H Time of Focused Exam: 19:06 Objective Exam Vital Signs Vital Signs Date Time Temp Pulse Resp B/P (MAP) Pulse Ox O2 Delivery O2 Flow Rate FiO2 09/16/21 08:00 Room Air 09/14/21 13:00 98 09/14/21 12:00 36.2 09/14/21 12:00 38 152/89 93 Capillary Refill : Less Than 3 Seconds General Appearance: No Apparent Distress, Chronically ill, Other (unresponsive) Respiratory: Decreased Breath Sounds, Other (periods of apnea, Sylvain-Ladd breathing) Cardiovascular: Regular Rate, Rhythm, No Murmur Gastrointestinal: Normal Bowel Sounds, Soft Extremity: No Inflammation; Pedal Edema Neurologic/Psychiatric: Other (unresponsive) Skin: Normal Color, Warm/Dry Results/Procedures Lab Patient resulted labs reviewed. Imaging: Reviewed Imaging Report Assessment/Plan Assessment and Plan Assess & Plan/Chief Complaint Septic shock Pneumonia Lactic acidosis Acute kidney injury Shock liver Acute heart failure with reduced ejection fraction Multiorgan failure Advanced dementia Poor prognosis Goals of care discussion Comfort measures only status Continue comfort measures Critical Care Critically Ill Patient Diagnosis/Problems Diagnosis/Problems (1) Septic shock Status: Acute (2) PNA (pneumonia) Status: Acute (3) Lactic acidosis Status: Acute (4) MAGALY (acute kidney injury) Status: Acute (5) Shock liver Status: Acute (6) Multiorgan failure Status: Acute (7) Advanced dementia Status: Chronic (8) Poor prognosis Status: Acute (9) Goals of care, counseling/discussion Status: Acute (10) Comfort measures only status Status: Acute (11) Acute HFrEF (heart failure with reduced ejection fraction) Status: Acute (12) NSTEMI (non-ST elevation myocardial infarction) Status: Acute ANASTASIIA ORTIZ MD Sep 16, 2021 17:15
[2021-09-17] MEDS: CATHETER FLUSH 10 ML SYR IV SCH ×2 (06:40→08:09)
[2021-09-17] MEDS: morphine INJ 4 MG/ML 1 ML (VIAL/SYRINGE) IV PRN ×2 (08:08→10:16)
--- NOTE | 2021-09-17 12:31 | Progress Note - Hospitalist ---
MORELIA RG 09/17/21 1231: Subjective HPI/CC On Admission Date Seen by Provider: Sep 17, 2021 Time Seen by Provider: 10:00 Davide Goldberg is an 86 year old male with PMH advanced dementia, HTN, T2DM, GERD, BPH, who presented with confusion and vomiting. He lives at home with his . He has advanced dementia. He is unable to provide any history because he is unresponsive. He was admitted with septic shock due to pneumonia. Subjective/Events-last exam Patient is currently receiving comfort care. He is laying in bed, sleeping, open-mouth breathing on room air, and mildly diaphoretic. His and son are present. His states that she believes he is comfortable. They have no questions at this time. Patient was not responsive to noise. No ROS was gathered. Focused Exam Lactate Level 09/14/21 12:35: Lactic Acid Level 6.59*H Time of Focused Exam: 19:06 Objective Exam Vital Signs Vital Signs Date Time Temp Pulse Resp B/P (MAP) Pulse Ox O2 Delivery O2 Flow Rate FiO2 09/17/21 08:00 Room Air 09/14/21 13:00 98 09/14/21 12:00 36.2 09/14/21 12:00 38 152/89 93 Capillary Refill : Less Than 3 Seconds Respiratory: Other (coarse inspiratory and expiratory breath sounds) Cardiovascular: Tachycardia, Other (regular rhythm) Gastrointestinal: Normal Bowel Sounds Extremity: Pedal Edema (trace pedal edema bilaterally), Other (purple/erythematous skin discoloration of left first toe and the dorsal surface of the right foot) Skin: Diaphoresis, Other (purple/erythematous skin discoloration of left first toe and the dorsal surface of the right foot) Results/Procedures Lab Patient resulted labs reviewed. Imaging: Reviewed Imaging Report Assessment/Plan Assessment and Plan Assess & Plan/Chief Complaint Assessment: Septic shock pneumonia lactic acidosis MAGALY acute HFrEF multiorgan failure dementia comfort care Plan: Continue comfort measures only Communicate with family MALINDA JIANG DO 09/18/21 0522: Subjective Subjective/Events-last exam Pt is now on comfort care Monitoring closely No pain is reported Family is at the bedside Objective Exam General Appearance: No Apparent Distress, WD/WN, Chronically ill Assessment/Plan Assessment and Plan Assess & Plan/Chief Complaint Comfort care Supervisory-Addendum Brief Verification & Attestation Participated in pt care: history, MDM, physical Personally performed: exam, history, MDM, supervision of care Care discussed with: Medical Student Procedures: n/a Results interpretation: Verified all documentation Verification and Attestation of Medical Student E/M Service A medical student performed and documented this service in my presence. I reviewed and verified all information documented by the medical student and made modifications to such information, when appropriate. I personally performed the physical exam and medical decision making. Malinda Jiang, Sep 18, 2021,05:22 MORELIA RG Sep 17, 2021 12:31 MALINDA JIANG DO Sep 18, 2021 05:22
[2021-09-17 17:14] VITALS: BP 155/87
--- NOTE | 2021-09-17 21:14 | Discharge Summary ---
Discharge Summary Hospital Course Was the Problem List Reviewed?: Yes Problems/Dx: (1) Septic shock Status: Acute (2) PNA (pneumonia) Status: Acute (3) Lactic acidosis Status: Acute (4) MAGALY (acute kidney injury) Status: Acute (5) Shock liver Status: Acute (6) Multiorgan failure Status: Acute (7) Advanced dementia Status: Chronic (8) Poor prognosis Status: Acute (9) Goals of care, counseling/discussion Status: Acute (10) Comfort measures only status Status: Acute (11) Acute HFrEF (heart failure with reduced ejection fraction) Status: Acute (12) NSTEMI (non-ST elevation myocardial infarction) Status: Acute Hospital Course Date of Admission: Sep 13, 2021 at 18:24 Admission Diagnosis : Family Physician/Provider: Juan Xavier DO Date of Discharge: 09/17/21 Discharge Diagnosis: septic shock, ARF Hospital Course: Lengthy hospital course after admitted for septic shock and started aggressive care. Patient continued to decline and was ultimately placed on comfort care and with family at bedside. Labs and Pending Lab Test: Microbiology 09/13/21 MRSA Screen - Final, Complete 09/13/21 Blood Culture - Preliminary, Resulted No growth 09/13/21 Urine Culture - Final, Complete NO GROWTH Home Meds Active Lisinopril 20 Mg Tablet 20 Mg PO DAILY@0900 Amlodipine Besylate 10 Mg Tablet 10 Mg PO DAILY Reported Ibuprofen 200 Mg Tablet 400 Mg PO Q8H PRN Omeprazole 20 Mg Capsule.dr 20 Mg PO 1200 Metoprolol Tartrate 100 Mg Tablet 100 Mg PO BID Doxazosin Mesylate 2 Mg Tablet 2 Mg PO DAILY Metformin HCl 500 Mg Tablet 500 Mg PO BID Assessment/Pt Instructions Discharge Planning: <30 minutes discharge planning Discharge Physical Examination Vital Signs Vital Signs Date Time Temp Pulse Resp B/P (MAP) Pulse Ox O2 Delivery O2 Flow Rate FiO2 09/17/21 17:14 36.2 98 38 155/87 100 Room Air Allergies: Coded Allergies: No Known Drug Allergies (Unverified , 02/22/10) Discharge Summary Date of Admission Sep 13, 2021 at 18:24 Date of Discharge Sep 17, 2021 at 17:15 Admission Diagnosis Septic shock Comfort Measures/ End of Life Care: Comfort Measures Discharge Diagnosis (1) Septic shock Status: Acute (2) PNA (pneumonia) Status: Acute (3) Lactic acidosis Status: Acute (4) MAGALY (acute kidney injury) Status: Acute (5) Shock liver Status: Acute (6) Multiorgan failure Status: Acute (7) Advanced dementia Status: Chronic (8) Poor prognosis Status: Acute (9) Goals of care, counseling/discussion Status: Acute (10) Comfort measures only status Status: Acute (11) Acute HFrEF (heart failure with reduced ejection fraction) Status: Acute (12) NSTEMI (non-ST elevation myocardial infarction) Status: Acute GRACE CONNOR DO Sep 17, 2021 21:14
== END 2021-09-17 17:15 | disposition expired | DRG 871 ==
LOC: EDUNIT# 14:10 → ER 14:11 → ICU 18:24 → 4TH 09-14 16:46
PROVIDERS: ADMIT Internal Medicine; ATTEND Internal Medicine
DX: A41.9 Sepsis, unspecified organism (principal); R65.21 Severe sepsis with septic shock; J18.9 Pneumonia, unspecified organism; K72.00 Acute and subacute hepatic failure without coma; I50.21 Acute systolic (congestive) heart failure; I21.4 Non-ST elevation (NSTEMI) myocardial infarction; E87.2 Acidosis; N17.9 Acute kidney failure, unspecified; D68.9 Coagulation defect, unspecified; B17.9 Acute viral hepatitis, unspecified; Z66 Do not resuscitate; F03.90 Unspecified dementia, unspecified severity, without behavioral disturbance, psychotic disturbance, mood disturbance, and anxiety; Z51.5 Encounter for palliative care; Z20.822 Contact with and (suspected) exposure to COVID-19; K21.9 Gastro-esophageal reflux disease without esophagitis; E11.649 Type 2 diabetes mellitus with hypoglycemia without coma; R45.1 Restlessness and agitation; N40.0 Benign prostatic hyperplasia without lower urinary tract symptoms; I11.0 Hypertensive heart disease with heart failure; R77.8 Other specified abnormalities of plasma proteins; Z79.899 Other long term (current) drug therapy; Z79.84 Long term (current) use of oral hypoglycemic drugs
CPT/HCPCS: 36415; 51702; 70450; 71045; 71250; 72125; 74176; 76705; 80053; 80061; 80074; 81000; 82140; 82550; 82947; 83605; 83735; 83874; 83880; 84100; 84145; 84484; 85007; 85025; 85027; 85610; 85730; 86141; 87040; 87081; 87088; 87635; 87636; 87804; 93005; 93041; 93306; 99291